=== PATIENT | female | born 1950 | race Caucasian/White ===

== ENCOUNTER 2024-08-12 19:54 | Inpatient (IN) | payer MEDICARE, SELFPAY ==
[2024-08-12] VITALS (17 sets, daily range): BP systolic 127–139; BP diastolic 60–73; PULSE 71–95; RESP 16–18; TEMP 36.5–36.6; O2SAT 82–99; BMI 27.4
--- NOTE | 2024-08-12 20:02 | DI.RAD.S_ITS ---
PROCEDURE: XR HIP W PEL IF DONE LT 2V INDICATIONS: Fall TECHNIQUE: AP pelvis with lateral view(s) of the left hip(s). COMPARISON: None. FINDINGS: Bones: There is an acute fracture involving subcapital region of left femoral neck with superior migration of left proximal femur in relation to femoral head. Moderate bilateral hip joint osteoarthritic changes are seen. No evidence of avascular necrosis of femoral head. Pelvic ring appears intact. No suspicious bony lesions. Soft tissues: The visualized bowel gas pattern is normal. No suspicious soft tissue calcifications. IMPRESSION: Acute displaced left femoral neck fracture as above. Dictated by: Regino Page M.D. on 08/12/2024 at 20:52 Approved by: Regino Page M.D. on 08/12/2024 at 20:53
--- NOTE | 2024-08-12 20:04 | DI.RAD.S_ITS ---
PROCEDURE: XR CHEST 1V INDICATIONS: PREOP TECHNIQUE: One view of the chest was acquired. COMPARISON: None. FINDINGS: Surgical changes and devices: None. Lungs and pleura: Mildly increased bronchovascular markings in bilateral hilar region are seen. No definite focal infiltrate. No pleural effusions or pneumothorax. Mediastinum: Mediastinal contours appear normal. Heart size is enlarged. Bones and chest wall: No suspicious bony lesions. Overlying soft tissues appear unremarkable. IMPRESSION: Increased bronchovascular markings in bilateral hilar region which may represent pulmonary vascular congestion. No definite focal infiltrate. No pleural effusion or pneumothorax. Dictated by: Regino Page M.D. on 08/12/2024 at 20:44 Approved by: Regino Page M.D. on 08/12/2024 at 20:44
--- NOTE | 2024-08-12 20:06 | ED_ITS ---
HPI - Fall General Chief Complaint: Fall Stated Complaint: GLF Time Seen by Provider: 08/12/24 20:01 Source: EMS Mode of arrival: EMS History of Present Illness HPI Narrative: 74yoF with PMH Parkinson's demenia, HTN presents by EMS from her assisted living facility for L hip pain after GLF from walker. History obtained from EMS as patient does have advanced dementia and is oriented to self only at baseline. Patient complaining of 35/10 left hip pain. Related Data Home Medications Medication Instructions Recorded Confirmed acetaminophen 325 mg tablet 650 mg PO Q4H PRN Pain, Mild 08/12/24 08/12/24 bisacodyl 10 mg rectal suppository 10 mg [place] DAILY PRN Constipation 08/12/24 08/12/24 (Dulcolax (bisacodyl)) carbidopa 25 mg-levodopa 100 mg 2.5 tab PO 3XD 08/12/24 08/12/24 tablet carbidopa ER 50 mg-levodopa 200 mg 1 tab PO ONCE PM 08/12/24 08/12/24 tablet,extended release duloxetine 60 mg capsule,delayed 60 mg PO BID 08/12/24 08/12/24 release esomeprazole magnesium 40 mg 40 mg PO DAILY 08/12/24 08/12/24 capsule,delayed release fenofibrate 54 mg tablet 54 mg PO DAILY 08/12/24 08/12/24 levothyroxine 125 mcg tablet 125 mcg PO DAILY 08/12/24 08/12/24 mineral oil 118 ml [place] DAILY PRN Constipation 08/12/24 08/12/24 mirabegron 50 mg tablet,extended 50 mg PO DAILY 08/12/24 08/12/24 release 24 hr (Myrbetriq) naloxone 0.4 mg/mL injection 0.4 mg SUBCUT Q2M PRN Suspected 08/12/24 08/12/24 solution Opioid overdose oxycodone 5 mg tablet 5 mg PO BID PRN chronic pain 08/12/24 08/12/24 polyethylene glycol 3350 17 17 g PO DAILY PRN Constipation 08/12/24 08/12/24 gram/dose oral powder (Miralax) rivastigmine 13.3 mg/24 hour 1 patch topical DAILY 08/12/24 08/12/24 transdermal patch sennosides 8.6 mg tablet (senna) 17.2 mg PO BEDTIME PRN Constipation 08/12/24 08/12/24 simvastatin 40 mg tablet 40 mg PO DAILY 08/12/24 08/12/24 trazodone 100 mg tablet 100 mg PO ONCE PM PRN Insomnia 08/12/24 08/12/24 triamcinolone acetonide 0.1 % 1 applic topical BID PRN Rash 08/12/24 08/12/24 topical cream Allergies Allergy/AdvReac Type Severity Reaction Status Date / Time amoxicillin [From Augmentin] Allergy Unknown Verified 08/12/24 21:49 clavulanic acid Allergy Unknown Verified 08/12/24 21:49 [From Augmentin] Patient History Social History Smoking Status: Never smoker Smoking Status: Never smoker Substance Use Type: does not use Exam Initial Vital Signs Initial Vital Signs: Vital Signs Pulse Rate 72 08/12/24 19:57 Pulse Oximetry 96 08/12/24 19:57 Const: Awake, alert, frail, debilitated, in pain Cardiac: regular rate, regular rhythm RESP: unlabored, clear bilaterally, no wheezing MSK: LLE shortened, exquisitely tender, unable to move due to pain, palpable DP pulses Skin: Warm, Dry, intact, no rashes Neuro: AO x1, CN II-XII grossly intact Procedures Nerve Block Nerve Block 1: Time out performed: Yes Local Anesthetic: bupivacaine 0.5% and with epi Amount of anesthesia used (mL): 20 Side: left Nerve Blocks: femoral Procedure Successful: Yes Patient Tolerated Procedure: Well and No complications Complications: none Additional Comments: Partial analgesia Course Orders Ordered: ED Orders 08/12/24 20:02 XR hip w pel if done LT 2V Stat 08/12/24 20:04 CT cervical spine wo con Stat CT head/brain wo con Stat Chest [XR chest 1V] Stat XR femur LT min 2V Stat 08/12/24 20:05 CBC Auto Diff [Complete Blood Count AUTO DIFF] Stat CMP [Comprehensive Metabolic Panel] Stat PT [Prothrombin Time INR] Stat EKG-12 Lead Stat 08/12/24 21:30 Type and Screen Stat 08/12/24 21:35 Consult to Orthopedic Surgery Stat Bisacodyl (Bisacodyl 10 Mg Supp) 10 mg [place] DAILY PRN PRN Reason: Constipation Lactated Ringer's (Lactated Ringers) 1,000 mls @ 100 mls/hr IV CONT JOSE MANUEL Acetaminophen (Ofirmev) 1,000 mg in 100 mls @ 400 mls/hr IV Q6H PRN PRN Reason: Fever/Mild Pain (1-3) Ketorolac Tromethamine (Ketorolac 30 Mg/Ml Vial) 15 mg IV Q6H PRN PRN Reason: moderate pain, 4-7 Stop: 08/17/24 21:55 Morphine Sulfate (Morphine 4 Mg/Ml Inj) 3 mg IV Q2HR PRN PRN Reason: severe pain Naloxone HCl (Naloxone 0.4 Mg/Ml Vial) 0.2 mg IV Q2MIN PRN PRN Reason: Opiate Reversal Sennosides (Sennosides 8.6 Mg Tablet) 17.2 mg PO BEDTIME PRN PRN Reason: Constipation Discontinued Medications Bupivacaine HCl (Bupivacaine 0.5% (Pf) 30 Ml Vial) 30 ml INJ INTRA-OP ONE Stop: 08/12/24 20:15 Last Admin: 08/12/24 22:28 Dose: Not Given Documented By: AB Bupivacaine HCl/Epinephrine Bitart (Bupivacaine 0.25% W/ Epi 30 Ml Vial) 30 ml INJ INTRA-OP ONE Stop: 08/12/24 20:06 Last Admin: 08/12/24 20:19 Dose: Not Given Documented By: AB Bupivacaine HCl/Epinephrine Bitart (Bupivacaine 0.5% W/ Epi (Pf) 30 Ml Vial) 30 ml INJ INTRA-OP ONE Stop: 08/12/24 20:38 Last Admin: 08/12/24 20:50 Dose: 30 ml Documented By: AB Hydromorphone HCl (Hydromorphone 1 Mg Inj) 1 mg IV NOW ONE Stop: 08/12/24 21:26 Last Admin: 08/12/24 21:28 Dose: 1 mg Documented By: AB Ketorolac Tromethamine (Ketorolac 30 Mg/Ml Vial) 15 mg IV Q6H PRN PRN Reason: moderate pain Stop: 08/17/24 21:55 Morphine Sulfate (Morphine 4 Mg/Ml Inj) 4 mg IV NOW ONE Stop: 08/12/24 20:05 Last Admin: 08/12/24 20:10 Dose: 4 mg Documented By: AB Morphine Sulfate (Morphine 4 Mg/Ml Inj) 3 mg IV Q2HR JOSE MANUEL Last Admin: 08/12/24 23:01 Dose: 3 mg Documented By: Pantoprazole Sodium (Pantoprazole 40 Mg Vial) 20 mg IV NOW ONE Stop: 08/12/24 23:43 Vital Signs Vital signs: Vital Signs - 8 hr 08/12/24 19:57 08/12/24 19:58 08/12/24 20:00 Temperature 97.9 F Pulse Rate 72 71 Respiratory Rate 16 Blood Pressure 130/60 137/70 Pulse Oximetry 96 95 Oxygen Delivery Method Room Air 08/12/24 20:00 08/12/24 21:05 08/12/24 21:06 Temperature Pulse Rate 73 82 Respiratory Rate Blood Pressure 139/63 Pulse Oximetry 95 95 Oxygen Delivery Method 08/12/24 21:06 08/12/24 21:29 08/12/24 21:30 Temperature Pulse Rate 82 84 Respiratory Rate Blood Pressure 136/66 Pulse Oximetry 93 91 Oxygen Delivery Method 08/12/24 21:30 08/12/24 21:35 Temperature Pulse Rate 86 89 Respiratory Rate Blood Pressure Pulse Oximetry 91 98 Oxygen Delivery Method MDM - Fall Differential Diagnosis Differential diagnosis: Likely compression fracture, concussion with loss of consciousness and concussion without loss of consciousness Lab Data 08/12/24 20:05 08/12/24 20:05 Labs: Lab Results 08/12/24 08/12/24 Range/Units 20:05 21:30 WBC 4.8 (4.5-11.0) X10^3/uL RBC 4.00 (4.0-5.2) X10^6/uL Hgb 12.2 (12.0-16.0) g/dL Hct 37.1 (36-46) % MCV 93.0 (80-100) fL MCH 30.6 (26-34) PG MCHC 32.9 (30-36) % RDW 14.5 (11.6-14.8) % Plt Count 245 (150-400) X10^3/uL Neut % (Auto) 55.9 (50-75) % Lymph % (Auto) 33.0 (25-40) % [place] % (Auto) 8.4 (3-14) % Eos % (Auto) 1.5 L (2-4) % Baso % (Auto) 1.2 (0-2) % Neut # (Auto) 2700 (1756-6850) /uL Lymph # (Auto) 1600 (6509-1426) /uL [place] # (Auto) 400 (0-900) /uL Eos # (Auto) 100 (0-450) /uL Baso # (Auto) 100 (0-100) /uL PT 12.3 (9.4-12.5) SECONDS INR 1.1 (0.9-1.3) Sodium 136 L (137-145) mmol/L Potassium 3.4 (3.4-5.1) mmol/L Chloride 108 H (98-107) mmol/L Carbon Dioxide 26 (22-32) mmol/L BUN 13 (7-17) mg/dL Creatinine 0.58 (0.52-1.04) mg/dL Estimated GFR > 60 (>60) mL/min BUN/Creatinine Ratio 22.4 H (6-22) Glucose 91 (80-110) mg/dL Calcium 8.2 L (8.4-10.2) mg/dL Total Bilirubin 0.5 (0.2-1.3) mg/dL AST 19 (14-36) IU/L ALT 7 (<35) IU/L Alkaline Phosphatase 66 (38-126) U/L Total Protein 6.5 (6.3-8.2) g/dL Albumin 3.5 (3.5-5.0) g/dL Globulin 3.0 (1.7-4.1) g/dL Albumin/Globulin Ratio 1.2 (1.0-2.8) Blood Type A Positive Antibody Screen Negative Imaging Data Extremity x-ray #1: Radiologist's Impression: PROCEDURE: XR HIP W PEL IF DONE LT 2V INDICATIONS: Fall TECHNIQUE: AP pelvis with lateral view(s) of the left hip(s). COMPARISON: None. FINDINGS: Bones: There is an acute fracture involving subcapital region of left femoral neck with superior migration of left proximal femur in relation to femoral head. Moderate bilateral hip joint osteoarthritic changes are seen. No evidence of avascular necrosis of femoral head. Pelvic ring appears intact. No suspicious bony lesions. Soft tissues: The visualized bowel gas pattern is normal. No suspicious soft tissue calcifications. IMPRESSION: Acute displaced left femoral neck fracture as above. Dictated by: Regino Page M.D. on 08/12/2024 at 20:52 Approved by: Regino Page M.D. on 08/12/2024 at 20:53 Extremity x-ray #2: Radiologist's Impression: PROCEDURE: XR FEMUR LT MIN 2V INDICATIONS: GLF, LLE PAIN TECHNIQUE: 2 views of the femur were acquired. COMPARISON: None. FINDINGS: Bones: Acute displaced fracture involving subcapital region of left femoral neck is seen. No mid to distal left femoral shaft fracture. Post ORIF changes are noted in patella. No gross hardware loosening or failure. Soft tissues: No suspicious soft tissue calcifications or masses. IMPRESSION: Acute displaced left femoral neck fracture. No mid to distal femoral shaft fracture. Dictated by: Regino Page M.D. on 08/12/2024 at 20:54 Approved by: Regino Page M.D. on 08/12/2024 at 20:54 CT scan - head: Radiologist's Impression: PROCEDURE: CT HEAD/BRAIN WO CON INDICATIONS: GLF, HEAD INJ TECHNIQUE: Noncontrast 4.5 mm thick angled axial sections acquired from the foramen magnum to the vertex, with coronal and sagittal reformats. For radiation dose reduction, the following was used: automated exposure control, adjustment of mA and/or kV according to patient size. COMPARISON: None. FINDINGS: Image quality: Diagnostic. CSF spaces: Basal cisterns are patent. No extra-axial fluid collections. The ventricles are symmetric in size and shape. Brain: No intracranial bleeds or masses. There is cerebral volume loss for age, with resultant ventricular and sulcal prominence. There are periventricular and deep white matter chronic small vessel ischemic changes. There is intracranial internal carotid artery atherosclerosis. Skull and face: Calvarium and visualized facial bones appear intact, without suspicious lesions. Sinuses: Visualized sinuses and mastoids are clear. IMPRESSION: 1. No acute intracranial pathology. 2. Age related volume loss and extensive white matter small vessel chronic ischemic changes. 3. No acute skull fracture. Dictated by: Regino Page M.D. on 08/12/2024 at 21:05 Approved by: Regino Page M.D. on 08/12/2024 at 21:06 CT - cervical spine: Radiologist's Impression: PROCEDURE: CT CERVICAL SPINE WO CON INDICATIONS: GLF, HEAD INJURY TECHNIQUE: Noncontrast 3 mm thick sections acquired from the skull base to the T4 level. Sagittal and coronal reformats were then constructed. For radiation dose reduction, the following was used: automated exposure control, adjustment of mA and/or kV according to patient size. COMPARISON: None. FINDINGS: Image quality: Excellent. Bones: No fractures or dislocations. Degenerative endplate changes are noted throughout cervical spine more notably at C5-6 and C6-7 levels causing mild central canal stenosis. No significant neural foraminal narrowing. Chronic appearing deformity involving left posterior 6 and 7th ribs are seen. Soft tissues: Prevertebral soft tissues are normal in thickness. No paravertebral hematomas. No apical pneumothoraces. IMPRESSION: 1. No displaced fracture or traumatic subluxation. 2. Degenerative disc disease throughout cervical spine as above. Dictated by: Regino Page M.D. on 08/12/2024 at 21:06 Approved by: Regino Page M.D. on 08/12/2024 at 21:08 [facility] Narrative Medical decision making narrative: Ground level fall at intermediate. Patient complaining of extreme tenderness in her left hip. Suspect underlying fracture. X-rays, laboratory work ordered. X-ray imaging confirms left-sided hip fracture. Spoke with patient's son Sravan and daughter in law Bernardo ([phone]) who i active patient's medical power of sql programmer. She was listed as DNR/comfort care only, however they state that for palliative reasons they would like to proceed with surgery if this is an option to them. Dr. Angeles of Orthopedic surgery consulted, who requested patient be made NPO at midnight. Patient requiring high doses of narcotic pain medication for analgesia. A femoral nerve block was attempted with 0.5% bupivacaine with epinephrine per procedure note. Patient did receive some improvement in her pain after the procedure, however still had significant tenderness with manipulation of her left leg. Patient to be admitted for further treatment Discharge Plan Departure Patient Disposition: Admitted As Inpatient Clinical Impression: Femoral neck fracture, Ground-level fall, Dementia Admit Date/Time: 08/12/24 21:35 Admit Provider: Wilfred Murray
--- NOTE | 2024-08-12 20:06 | PC.NURSE ---
Pt states the medication given in the ambulance did not even touch it. Pt able to extend and flex foot, but lifting causes pain in left hip. Pulse in left foot regular.
[2024-08-12] MEDS: MORPHINE 4 MG/ML INJ IV (20:10)
[2024-08-12 20:13] LABS: Add Manual Diff / Slide Review NO; Basophils Absolute Auto 100 /uL (0-100); Basophils Percent Auto 1.2 % (0-2); Eosinophils Absolute Auto 100 /uL (0-450); Eosinophils Percent Auto 1.5 % (2-4); Hematocrit 37.1 % (36-46); Hemoglobin 12.2 g/dL (12.0-16.0); Lymphocytes Absolute Auto 1600 /uL (1100-4500); Mean Corpuscular HGB Conc 32.9 % (30-36); Mean Corpuscular Hemoglobin 30.6 PG (26-34); Monocytes Absolute Auto 400 /uL (0-900); Monocytes Percent Auto 8.4 % (3-14); Neutrophils Absolute Auto 2700 /uL (1500-7000); Neutrophils Percent Auto 55.9 % (50-75); Platelet Count 245 X10^3/uL (150-400); Red Cell Distribution Width 14.5 % (11.6-14.8); White Blood Cell Count 4.8 X10^3/uL (4.5-11.0)
[2024-08-12 20:20] LABS: INR 1.1 (0.9-1.3); Prothrombin Time 12.3 SECONDS (9.4-12.5)
[2024-08-12 20:24] LABS: Alanine Aminotransferase 7 IU/L (<35); Albumin 3.5 g/dL (3.5-5.0); Albumin Globulin Ratio 1.2 (1.0-2.8); Alkaline Phosphatase 66 U/L (38-126); Aspartate Aminotransferase 19 IU/L (14-36); BUN Creatinine Ratio 22.4 (6-22); Bilirubin Total 0.5 mg/dL (0.2-1.3); Blood Urea Nitrogen 13 mg/dL (7-17); Calcium 8.2 mg/dL (8.4-10.2); Carbon Dioxide 26 mmol/L (22-32); Chloride 108 mmol/L (98-107); Estimated Glomerular Filt Rate > 60 mL/min (>60); Glucose 91 mg/dL (80-110); HEMOLYSIS 22 (0-50); Potassium 3.4 mmol/L (3.4-5.1); Sodium 136 mmol/L (137-145); Total Protein 6.5 g/dL (6.3-8.2)
[2024-08-12] MEDS: BUPIVACAINE 0.5% W/ EPI (PF) 30 ML VIAL INJ (20:50)
[2024-08-12] MEDS: HYDROMORPHONE 1 MG INJ IV (21:28)
[2024-08-12] MEDS: MORPHINE 4 MG/ML INJ 3 MG IV (23:01)
--- NOTE | 2024-08-12 23:43 | P.HP_ITS ---
History of Present Illness History of Present Illness Date Patient Seen: 08/12/24 Time Patient Seen: 23:25 Chief complaint: GLF Narrative: 74 y/o with PMH of Parkinson's disease, recurrent falls, OP, cognitive deficits, hypothyroidism, mixed HLD, GERD, who presented with left hip fracture after she sustained GLF. Unable to provide history or talk at the time of admission. Orthopedic surgery will see in AM for ORIF for Lt femoral neck fracture. [facility] Social History Smoking Status: Never smoker Meds Home Medications and Allergies Home Medications Medication Instructions Recorded Confirmed Type acetaminophen 325 mg tablet 650 mg PO Q4H PRN Pain, Mild 08/12/24 08/12/24 History bisacodyl 10 mg rectal suppository 10 mg [place] DAILY PRN Constipation 08/12/24 08/12/24 History (Dulcolax (bisacodyl)) carbidopa 25 mg-levodopa 100 mg 2.5 tab PO 3XD 08/12/24 08/12/24 History tablet carbidopa ER 50 mg-levodopa 200 mg 1 tab PO ONCE PM 08/12/24 08/12/24 History tablet,extended release duloxetine 60 mg capsule,delayed 60 mg PO BID 08/12/24 08/12/24 History release esomeprazole magnesium 40 mg 40 mg PO DAILY 08/12/24 08/12/24 History capsule,delayed release fenofibrate 54 mg tablet 54 mg PO DAILY 08/12/24 08/12/24 History levothyroxine 125 mcg tablet 125 mcg PO DAILY 08/12/24 08/12/24 History mineral oil 118 ml [place] DAILY PRN Constipation 08/12/24 08/12/24 History mirabegron 50 mg tablet,extended 50 mg PO DAILY 08/12/24 08/12/24 History release 24 hr (Myrbetriq) naloxone 0.4 mg/mL injection 0.4 mg SUBCUT Q2M PRN Suspected 08/12/24 08/12/24 History solution Opioid overdose oxycodone 5 mg tablet 5 mg PO BID PRN chronic pain 08/12/24 08/12/24 History polyethylene glycol 3350 17 17 g PO DAILY PRN Constipation 08/12/24 08/12/24 History gram/dose oral powder (Miralax) rivastigmine 13.3 mg/24 hour 1 patch topical DAILY 08/12/24 08/12/24 History transdermal patch sennosides 8.6 mg tablet (senna) 17.2 mg PO BEDTIME PRN Constipation 08/12/24 08/12/24 History simvastatin 40 mg tablet 40 mg PO DAILY 08/12/24 08/12/24 History trazodone 100 mg tablet 100 mg PO ONCE PM PRN Insomnia 08/12/24 08/12/24 History triamcinolone acetonide 0.1 % 1 applic topical BID PRN Rash 08/12/24 08/12/24 History topical cream Allergies Allergy/AdvReac Type Severity Reaction Status Date / Time amoxicillin [From Augmentin] Allergy Unknown Verified 08/12/24 21:49 clavulanic acid Allergy Unknown Verified 08/12/24 21:49 [From Augmentin] Review of Systems Review of Systems Narrative: unobtainable - she wouldn't talk during the admission, confused Exam Vital Signs (past 8 hours): - 08/12/24 19:57 08/12/24 19:58 08/12/24 20:00 Temperature 97.9 F Pulse Rate 72 71 Respiratory Rate 16 Blood Pressure 130/60 137/70 Pulse Oximetry 96 95 Oxygen Delivery Method Room Air Oxygen Flow Rate 08/12/24 20:00 08/12/24 21:05 08/12/24 21:06 Temperature Pulse Rate 73 82 Respiratory Rate Blood Pressure 139/63 Pulse Oximetry 95 95 Oxygen Delivery Method Oxygen Flow Rate 08/12/24 21:06 08/12/24 21:29 08/12/24 21:30 Temperature Pulse Rate 82 84 Respiratory Rate Blood Pressure 136/66 Pulse Oximetry 93 91 Oxygen Delivery Method Oxygen Flow Rate 08/12/24 21:30 08/12/24 21:35 08/12/24 21:40 Temperature Pulse Rate 86 89 89 Respiratory Rate Blood Pressure Pulse Oximetry 91 98 88 L Oxygen Delivery Method Oxygen Flow Rate 08/12/24 21:45 08/12/24 21:50 08/12/24 21:50 Temperature 97.7 F Pulse Rate 87 89 93 H Respiratory Rate 18 Blood Pressure 127/73 Pulse Oximetry 97 97 99 Oxygen Delivery Method Oxygen Flow Rate 1 08/12/24 21:55 08/12/24 22:00 08/12/24 22:00 Temperature Pulse Rate 90 91 H Respiratory Rate Blood Pressure 128/60 Pulse Oximetry 98 95 Oxygen Delivery Method Oxygen Flow Rate 08/12/24 22:05 08/12/24 22:10 08/12/24 22:15 Temperature Pulse Rate 91 H 92 H 94 H Respiratory Rate Blood Pressure Pulse Oximetry 97 82 L 97 Oxygen Delivery Method Room Air Nasal Cannula Oxygen Flow Rate 2 08/12/24 22:20 Temperature Pulse Rate 95 H Respiratory Rate Blood Pressure Pulse Oximetry 97 Oxygen Delivery Method Nasal Cannula Oxygen Flow Rate 2 Oxygen Delivery Method Nasal Cannula Oxygen Flow Rate 2 Const Other: in no distress, laying in bed, does not talk or participate with ROS / exam HENMT Other: atraumatic, on 1 L of oxygen via NC Neck Other: supple Resp Other: normal respiratory effort Cardio Other: RRR Skin Other: groin candidiasis Neuro Other: bradykinetic Extrem Other: Lt leg shortened, rotated, tender hip Psych Other: cognitive deficits Objective Labs 08/12/24 20:05 08/12/24 20:05 Labs: Laboratory Results - last 24 hr 08/12/24 08/12/24 20:05 21:30 WBC 4.8 RBC 4.00 Hgb 12.2 Hct 37.1 MCV 93.0 MCH 30.6 MCHC 32.9 RDW 14.5 Plt Count 245 Neut % (Auto) 55.9 Lymph % (Auto) 33.0 [place] % (Auto) 8.4 Eos % (Auto) 1.5 L Baso % (Auto) 1.2 Neut # (Auto) 2700 Lymph # (Auto) 1600 [place] # (Auto) 400 Eos # (Auto) 100 Baso # (Auto) 100 PT 12.3 INR 1.1 Sodium 136 L Potassium 3.4 Chloride 108 H Carbon Dioxide 26 BUN 13 Creatinine 0.58 Estimated GFR > 60 BUN/Creatinine Ratio 22.4 H Glucose 91 Calcium 8.2 L Total Bilirubin 0.5 AST 19 ALT 7 Alkaline Phosphatase 66 Total Protein 6.5 Albumin 3.5 Globulin 3.0 Albumin/Globulin Ratio 1.2 Blood Type A Positive Antibody Screen Negative Assessment & Plan Assessment and plan (1) Ground-level fall: Status: Acute (2) Femoral neck fracture: Status: Acute (3) Parkinson disease: Status: Acute (4) Dementia: Status: Acute (5) Depression: Status: Acute (6) Hypothyroidism: Status: Acute (7) GERD (gastroesophageal reflux disease): Status: Acute (8) Mixed hyperlipidemia: Status: Acute Assessment & Plan narrative: Lt Femoral Neck Fracture - NPO after midnight for OR - LR maintenance at midnight - pain management with Tylenol, Toradol, morphine - PT, OT, SS - Hx of recurrent falls 2nd to Parkinson's Parkinson's Disease / Dementia / Depression - resume Sinemet, rivastigmine and Cymbalta postop GERD - PPI x IV, resume PO postop Hypothyroidism - resume levothyroxine postop Constipation - laxatives Mixed HLD - Tricor / statin at home, resume postop DVT prophylaxis - SCDs Time-Based Coding :: [TOTAL MINUTES] spent with patient and on the chart (including review of chart, obtaining history, exam, reviewing outside data, placing orders, documenting exam and treatment plan, and counseling patient) on [DATE].
[2024-08-13] VITALS (14 sets, daily range): BP systolic 100–146; BP diastolic 53–86; PULSE 88–116; RESP 14–92; TEMP 36–37; O2SAT 4–95; BMI 27.4
[2024-08-13] MEDS: LACTATED RINGERS 1,000 ML 100 ML IV ×3 (00:52→21:03)
[2024-08-13] MEDS: PANTOPRAZOLE 40 MG VIAL 20 MG IV (00:52)
--- NOTE | 2024-08-13 02:31 | PC.NURSE ---
attempted to complete admissionassssemsnt but patient was not able to remember even basic information, completed what patient was able to answer.
[2024-08-13] MEDS: MORPHINE 4 MG/ML INJ 3 MG IV (06:23)
--- NOTE | 2024-08-13 08:21 | PM.CN ---
History of Present Illness Consult details Date Patient Seen: 08/13/24 Time Patient Seen: 08:21 Chief complaint: GLF Reason for consult: Left femoral neck fracture Requesting provider: Maryan Aviles Narrative: The patient is a 74-year-old female with a history of Parkinson's and dementia but lives at [facility] in [place]. Reported fall from a walker ground level fall onto left hip. Was brought to [facility] Emergency room by EMS found to have displaced left femoral neck fracture. Orthopedic surgery was called by the emergency room. RONIT is son Sravan who was in [facility]. Phone number is [phone] and [id number] [place] area code [phone] Patient unable to provide history. Apparently complained of left hip pain in the emergency room. Patient was seen in hospital bed today. She is sleeping. Awake slightly but is unable to provide any history to me. And does not respond to my questions. Meds Home Medications and Allergies Home Medications Medication Instructions Recorded Confirmed Type acetaminophen 325 mg tablet 650 mg PO Q4H PRN Pain, Mild 08/12/24 08/12/24 History bisacodyl 10 mg rectal suppository 10 mg TN DAILY PRN Constipation 08/12/24 08/12/24 History (Dulcolax (bisacodyl)) carbidopa 25 mg-levodopa 100 mg 2.5 tab PO 3XD 08/12/24 08/12/24 History tablet carbidopa ER 50 mg-levodopa 200 mg 1 tab PO ONCE PM 08/12/24 08/12/24 History tablet,extended release duloxetine 60 mg capsule,delayed 60 mg PO BID 08/12/24 08/12/24 History release esomeprazole magnesium 40 mg 40 mg PO DAILY 08/12/24 08/12/24 History capsule,delayed release fenofibrate 54 mg tablet 54 mg PO DAILY 08/12/24 08/12/24 History levothyroxine 125 mcg tablet 125 mcg PO DAILY 08/12/24 08/12/24 History mineral oil 118 ml TN DAILY PRN Constipation 08/12/24 08/12/24 History mirabegron 50 mg tablet,extended 50 mg PO DAILY 08/12/24 08/12/24 History release 24 hr (Myrbetriq) naloxone 0.4 mg/mL injection 0.4 mg SUBCUT Q2M PRN Suspected 08/12/24 08/12/24 History solution Opioid overdose oxycodone 5 mg tablet 5 mg PO BID PRN chronic pain 08/12/24 08/12/24 History polyethylene glycol 3350 17 17 g PO DAILY PRN Constipation 08/12/24 08/12/24 History gram/dose oral powder (Miralax) rivastigmine 13.3 mg/24 hour 1 patch topical DAILY 08/12/24 08/12/24 History transdermal patch sennosides 8.6 mg tablet (senna) 17.2 mg PO BEDTIME PRN Constipation 08/12/24 08/12/24 History simvastatin 40 mg tablet 40 mg PO DAILY 08/12/24 08/12/24 History trazodone 100 mg tablet 100 mg PO ONCE PM PRN Insomnia 08/12/24 08/12/24 History triamcinolone acetonide 0.1 % 1 applic topical BID PRN Rash 08/12/24 08/12/24 History topical cream Allergies Allergy/AdvReac Type Severity Reaction Status Date / Time amoxicillin [From Augmentin] Allergy Unknown Verified 08/12/24 21:49 clavulanic acid Allergy Unknown Verified 08/12/24 21:49 [From Augmentin] Review of Systems Review of Systems ROS: Yes unobtainable due to mental condition Exam Vital Signs (past 8 hours): Oxygen Delivery Method Nasal Cannula Oxygen Flow Rate 2 Narrative Exam Narrative: General exam lying in bed sleeping can be woken but does not respond to questions. Lying in bed pillow between her legs. Externally rotated left lower extremity. Toes are warm. Palpable dorsalis pedis pulse. The patient does not comply with the rest of motor sensory exam. Thigh and lower leg compartments are soft. Boogie catheter in place. Very limited exam due to patient condition but other than external rotation left lower extremity, no significant deformities noted Objective Imaging AP pelvis and left lateral hip: My impression: Displaced left femoral neck fracture Labs 08/12/24 20:05 08/12/24 20:05 Labs: Laboratory Results - last 24 hr 08/12/24 08/12/24 20:05 21:30 WBC 4.8 RBC 4.00 Hgb 12.2 Hct 37.1 MCV 93.0 MCH 30.6 MCHC 32.9 RDW 14.5 Plt Count 245 Neut % (Auto) 55.9 Lymph % (Auto) 33.0 [place] % (Auto) 8.4 Eos % (Auto) 1.5 L Baso % (Auto) 1.2 Neut # (Auto) 2700 Lymph # (Auto) 1600 [place] # (Auto) 400 Eos # (Auto) 100 Baso # (Auto) 100 PT 12.3 INR 1.1 Sodium 136 L Potassium 3.4 Chloride 108 H Carbon Dioxide 26 BUN 13 Creatinine 0.58 Estimated GFR > 60 BUN/Creatinine Ratio 22.4 H Glucose 91 Calcium 8.2 L Total Bilirubin 0.5 AST 19 ALT 7 Alkaline Phosphatase 66 Total Protein 6.5 Albumin 3.5 Globulin 3.0 Albumin/Globulin Ratio 1.2 Blood Type A Positive Antibody Screen [facility] Social History marital status: household members: none housing: senior living Tobacco & Substance Use Smoking Status: Never smoker Assessment & Plan Assessment and plan (1) Femoral neck fracture: Qualifiers: Encounter type: initial encounter Fracture type: closed Laterality: left Qualified Code(s): S72.002A - Fracture of unspecified part of neck of left femur, initial encounter for closed fracture Status: Acute (2) Dementia: Qualifiers: Dementia type: Parkinson's disease Dementia behavioral or psychological symptom: unspecified whether behavioral, psychotic, or mood disturbance or anxiety Dementia severity: unspecified severity Qualified Code(s): G20.A1 - Parkinson's disease without dyskinesia, without mention of fluctuations; F02.80 - Dementia in other diseases classified elsewhere, unspecified severity, without behavioral disturbance, psychotic disturbance, mood disturbance, and anxiety Status: Acute (3) Osteoporotic hip fracture: Qualifiers: Encounter type: initial encounter Laterality: left Qualified Code(s): M80.052A - Age-related osteoporosis with current pathological fracture, left femur, initial encounter for fracture Status: Acute Assessment & Plan narrative: Displaced left femoral neck fracture. I discussed the risks benefits and morbidity associated with femoral neck fracture with the patient's RONIT Hinson that is her son. And [id number] was also on the phone [place]. I have recommended surgery for a cemented hemiarthroplasty of the left hip for treatment of her left displaced femoral neck fracture this will allow more comfortable mobilization and reduce the morbidity of prolonged bed rest. We discussed overall risks of cognitive decline, blood loss, infection, risks of surgery. There agree to proceed. We discussed we will call back with anesthesia to go over formal surgical and anesthesia risks in a few hours and surgery would be planned for later today. She is NPO. She has not on any blood thinners. POA is son Sravan [phone] he is currently located in [place] Secondary POA [id number] [place]ova [phone] High-level medical decision-making decision for major orthopedic surgery inpatient admission hip fracture fixation. Time-Based Coding :: [TOTAL MINUTES] spent with patient and on the chart (including review of chart, obtaining history, exam, reviewing outside data, placing orders, documenting exam and treatment plan, and counseling patient) on [DATE].
--- NOTE | 2024-08-13 09:15 | PT-IP ANOTE ---
PT eval received and EMR reviewed. pt with L femoral neck fx and is scheduled for sx today. will d/c PT eval order and will wait for new order post surgery.
[2024-08-13] MEDS: ACETAMINOPHEN IV 1,000 MG/100 ML VIAL 400 MG IV (09:54)
[2024-08-13] MEDS: LACTATED RINGERS 1,000 ML 42 ML IV ×2 (10:36→14:01)
--- NOTE | 2024-08-13 10:48 | PM.OP.1 ---
Operative Date/Time/Diagnoses Date of procedure: 08/13/24 Time of procedure: 11:20 Pre-op diagnosis: Left femoral neck Fracture, osteoporotic hip fracture Post-op diagnosis: same Procedure & Clinicians Procedure: Hemiarthroplasty left hip CPT code 70114 Same procedure as scheduled: Yes Indications: 74Year old female with a displaced left femoral neck fracture. She has been indicated for operative treatment with a cemented hemiarthroplasty for the left hip fracture. She has Parkinson's dementia. The risks and benefits of the procedure have been discussed with the patient's POA her son Sravan and given the opportunity to ask questions. The risks of surgery include but are not limited to infection, fracture, persistence of pain, damage to nerves and blood vessels, blood loss, DVT, PE, cardiopulmonary complications and . The POA expressed a thorough understanding of the risks and benefits of surgery and has elected to proceed. Telephone Consent was signed and witnessed. Surgeon: Phuong Lundberg Power Lineworker: Jeannine Martinez Anesthesia Type: General and Local Operative Notes Findings: Displaced femoral neck fracture, left Closure Type: primary Specimen(s): none sent Prosthetic devices, grafts, tissues, transplants, or devices: [employer] Synergy stem cemented size 14 Neck 0 Head tandem unipolar 43 mm Medium cement restrictor 11 mm centralizer Estimated Blood Loss (mL): 200 Blood products transfused: none Tourniquet time (min): 0 Procedure in detail: During the operation, the services of a physician medical or surgical instrument maker were medically indicated and necessary to provide the exposure of the operative site for the surgical procedure and to maintain the limb in a proper position to carry out the operation safely and efficiently. Without a qualified cleaner assistant being present this would extended the operative procedure and made the procedure technically more difficult to perform. Hemiarthroplasty for femoral neck fracture CPT code 49201. Patient was seen in the preoperative area the site of surgery was marked and informed consent confirmed. This was the left hip The patient was brought back to the operating room by the anesthesia team. Patient was positioned supine on the operative table. General anesthetic was administered. Patient was then moved into the lateral position. The hip student activities director positioner pads were then placed. A well-padded axillary roll was placed and the arms were appropriately positioned. The affected lower extremity was prepped and draped from the ankle to the iliac crest with ChloraPrep in the standard fashion sterile drapes were placed. Formal time-out procedure was performed confirming the patient's side and site of surgery, presence of informed consent, administration of appropriate preoperative antibiotics. Hip was approached through a standard posterior approach. Dissection was carried down through the skin and subcutaneous tissues sharply through the skin and then with the Bovie through the subcutaneous tissues. The fascia santo was exposed and opened. Fascia was opened using the Bovie and the gluteus karina was spread with finger retraction. The Charnley retractor was placed. The inflamed bursa was resected. The piriformis was then identified. A Cobra retractor was placed under the gluteus medius to help expose the external rotators. The piriformis and short external rotators were tagged with a 2 Ethibond and divided of the trochanter. These were then retracted posteriorly to protect sciatic nerve. The femur was then flexed and internally rotated to present the femoral neck and the fracture. A corkscrew and a Vaughan were used to remove the femoral head from the acetabulum. This was measured to fit a 43 mm head on an equatorial fit through the head sizers. Next the femur was presented. A clean-up neck cut was made in a minimal fashion. The trial head size was trialed in the acetabulum. Attention was then turned to the femur. The canal was opened with a box cutting osteotome. This followed by the canal finer and a lateralizing Reamer. The tapered reamers were then used up to a size 12 initially and then eventually up to a 14. Then broaching was sequentially done up to a size 14 Trial components were placed. The patient was stable in the position of sleep, squatting and could be put through a range of motion with 70? of internal rotation without dislocation. This was felt to be appropriate. An intraop a AP pelvis x-ray was obtained to assess component position. Final components were then selected. The final stem was a size 14. Femoral canal was prepared . The distal medial restrictor was placed approximately 1 cm distal to the end of the planned implant. The bone was meticulously cleaned with pulse lavage. Canal was then packed with gauze. Three packages of cement were mixed and carefully pressurized into the femoral canal. The femoral component was then placed without difficulty. This was held in place until the cement hardened. The repeat trial reduction showed good range of motion and stability. The final head and neck were then carefully placed. The wound was irrigated. The capsule and muscular flap was repaired with the 2. Ethibond. Next the short external rotators were repaired to the greater trochanter through drill holes in the greater trochanter using the 2.5 drill and a [employer] suture Passer. These were tied with the leg in abduction. The wound was then irrigated again. The fascia santo was closed with 0 Vicryl and the subcutaneous layer was closed with 2-0 Vicryl and the skin with talia. An Aquacel dressing was placed. An abduction pillow was placed for protection. The drapes removed and the patient was taken to the recovery room in good condition. There no immediate complications from this procedure. All counts were correct. Postoperative AP pelvis x-ray was obtained in the PACU showed appropriate alignment of the cemented hip hemiarthroplasty with no evidence of fracture. Complications: none Post-operative Condition: stable Disposition: PACU Plan for aftercare: Weightbear as tolerated. Posterior hip precautions x6 weeks. Lovenox 40 mg subQ daily x4 weeks for DVT prophylaxis nursing home discharge Follow up in Orthopedic Clinic in 2-3 weeks for x-ray
--- NOTE | 2024-08-13 11:13 | SUR.HOLD ---
Patient resting quietly in bed, awaiting surgery; RR even and unlabored and does not appear to be in any distress. Verbal cosent for anesthesia and surgery obtained via telephone with son RONIT Perez.
[2024-08-13] MEDS: CEFAZOLIN 2 GM/100 ML PREMIX 100 ML IV ×2 (11:32→19:52)
--- NOTE | 2024-08-13 11:32 | CM.DANOTE ---
Patient is a 74 y/o F admitted s/p fall, undergoing palliative repair of hip fx today. Patient has a hx of Parkinsons and dementia, spoke with patient son/Bandar Hinson [phone]. He states the patient was residing in [place] and was recently relocated to the area and placed at [facility] private pay, doing a spend down to qualify for medicaid coverage. Patient fell at the facility and was transferred for care. Patient has Medicare and son would like her to return to [facility] for SNF if she qualifies to use her SNF days, otherwise she can return private pay to continue spend down. [facility] notified of intent to return. Will need updates sent after surgery and PT eval. No other needs identified or voiced at this time. MEGA Adams Discharge Planning/Care Management CM Discharge Assessment Start: 08/13/24 11:30 Freq: Status: Active Protocol: Document 08/13/24 11:30 KG (Rec: 08/13/24 11:32 KG [id number]) Discharge Planning Assessment Assigned Research Chemical Engineer Nette Garcia Advance Directives? Yes: Yes; POLST Advance Directives on File Yes History Provided By Family Member Expected Length of Stay 3 Prior Living Arrangements Skilled Nurse Facility Household Members none Type of transporation used prior to Relies on Others admit Facility Name Admitted From: [facility] Willing to Return to Facility? Yes Independent with ADL's No Is patient alert and oriented? No Caregiver for Another No Patient/Family Preference Senior Care Facility Discharge Plan Senior Care Facility Medicare Choice List Provided Yes Medicare choice list reviewed on family electronic tablet with SNF/HH Preference [facility] Has Agency SNF been contacted Yes
--- NOTE | 2024-08-13 12:05 | SUR.OPER ---
Lateral on a barcenas bag, head on pillow, gel axillary roll in place, bottom leg bent with gel pad under knee to foot, upper leg straight and supported with pillows. Upper arm supported by pillows and secured over bottom arm to padded arm board. Hip positioner posts placed per surgeon, tape over blanket lower legs.
[2024-08-13] MEDS: BUPIVACAINE 0.25% (PF) 30 ML, EPINEPHrine 0.15 MG INJ (12:21)
[2024-08-13] MEDS: BUPIVACAINE LIPOSOME 266 MG/20 ML VIAL INJ (12:24)
--- NOTE | 2024-08-13 12:27 | DI.RAD.S_ITS ---
PROCEDURE: XR PELVIS 1-2V INDICATIONS: Surgery TECHNIQUE: A single image was obtained during an operative procedure and submitted for interpretation following the completion of the procedure. COMPARISON: [facility], CR, XR FEMUR LT MIN 2V, 08/12/2024, 20:18. FINDINGS: On this single intraoperative image, progress is made towards placement of left hip arthroplasty. Intraoperative equipment can be seen. Please correlate with intraoperative findings. IMPRESSION: Normal intraoperative examination. Dictated by: Brice Key M.D. on 08/13/2024 at 12:02 Approved by: Brice Key M.D. on 08/13/2024 at 12:03
--- NOTE | 2024-08-13 13:00 | DI.RAD.S_ITS ---
PROCEDURE: XR HIP LT 1V INDICATIONS: Post Surgery Film TECHNIQUE: 2 view(s) of the hip acquired. COMPARISON: [facility], JA, XR HIP W PEL IF DONE LT 2V, 08/12/2024, 20:18. FINDINGS: Bones: Patient is status post left hip arthroplasty, with hardware components in expected positions. The hip joint appears congruent. The visualized bony structures appear intact. Soft tissues: Overlying postoperative changes are noted. No suspicious soft tissue densities. IMPRESSION: Expected post-operative appearance of a hip arthroplasty. Dictated by: Vishnu Haynes M.D. on 08/13/2024 at 15:13 Approved by: Vishnu Haynes M.D. on 08/13/2024 at 15:13
--- NOTE | 2024-08-13 14:10 | SUR.PHASEI ---
Patient in Phase 1 recovery; vss; patient remains on oxygen via nasal cannula at 3 liters, saturation of 90%; good rise and fall of chest wall noted, encouraged deep breathing. Patient does not appear to be in any distress. Sipping small amounts of water with assistance of PACU nurse. Boogie catheter draining padmaja-colored urine to bedside bag. Small dime-size drainage noted to aquacell dressing to left hip.
--- NOTE | 2024-08-13 14:31 | PM.PN.1 ---
Subjective Subjective Interval history: 74-year-old female with Parkinson's disease, advanced dementia, recurrent falls, hypothyroidism, hyperlipidemia, GERD who suffered a ground level fall while walking with her walker, and was found to have a left hip fracture. Family requested fracture repair for palliation. They confirmed her DNR/comfort care status. Currently, patient respondsuh huh to all questions I ask her Exam Vital Signs (past 8 hours): - 08/13/24 08:35 08/13/24 10:20 08/13/24 13:47 Temperature 96.8 F L 97.7 F 98.6 F Pulse Rate 88 90 108 H Respiratory Rate 14 20 18 Blood Pressure 146/86 H 129/80 132/86 Pulse Oximetry 95 93 93 Oxygen Delivery Method Nasal Cannula Nasal Cannula Oxygen Flow Rate 1 2 4 08/13/24 13:50 08/13/24 13:52 08/13/24 13:57 Temperature Pulse Rate 109 H 105 H 110 H Respiratory Rate 17 16 19 Blood Pressure 120/72 119/78 117/62 Pulse Oximetry 92 93 93 Oxygen Delivery Method Nasal Cannula Nasal Cannula Nasal Cannula Oxygen Flow Rate 4 3 3 08/13/24 13:57 08/13/24 14:02 08/13/24 14:07 Temperature Pulse Rate 110 H 111 H 110 H Respiratory Rate 18 19 24 Blood Pressure 117/62 119/76 116/64 Pulse Oximetry 92 91 91 Oxygen Delivery Method Nasal Cannula Nasal Cannula Nasal Cannula Oxygen Flow Rate 3 3 3 08/13/24 14:15 08/13/24 14:17 Temperature Pulse Rate 109 H 111 H Respiratory Rate 26 H 92 H Blood Pressure 114/64 113/63 Pulse Oximetry 92 4 L Oxygen Delivery Method Nasal Cannula Nasal Cannula Oxygen Flow Rate 4 Oxygen Delivery Method Nasal Cannula Oxygen Flow Rate 4 Narrative Exam Narrative: GEN: Elderly female, Alert and oriented x 1, NAD HEENT:NC, Face symmetric CHEST: Respiratory excursions symmetric, CTAB CV: Mildly tachycardic with regular rhythm, no M/R/G ABD: Soft, NT/ND, BT present in all 4 quadrants, no organomegaly or masses EXTR: warm, well perfused, no C/C/E SKIN: warm and dry, no rash NEURO: Alert and oriented x 1, nonfocal Objective Labs 08/12/24 20:05 08/12/24 20:05 Labs: Laboratory Results - last 24 hr 08/12/24 08/12/24 20:05 21:30 WBC 4.8 RBC 4.00 Hgb 12.2 Hct 37.1 MCV 93.0 MCH 30.6 MCHC 32.9 RDW 14.5 Plt Count 245 Neut % (Auto) 55.9 Lymph % (Auto) 33.0 [place] % (Auto) 8.4 Eos % (Auto) 1.5 L Baso % (Auto) 1.2 Neut # (Auto) 2700 Lymph # (Auto) 1600 [place] # (Auto) 400 Eos # (Auto) 100 Baso # (Auto) 100 PT 12.3 INR 1.1 Sodium 136 L Potassium 3.4 Chloride 108 H Carbon Dioxide 26 BUN 13 Creatinine 0.58 Estimated GFR > 60 BUN/Creatinine Ratio 22.4 H Glucose 91 Calcium 8.2 L Total Bilirubin 0.5 AST 19 ALT 7 Alkaline Phosphatase 66 Total Protein 6.5 Albumin 3.5 Globulin 3.0 Albumin/Globulin Ratio 1.2 Blood Type A Positive Antibody Screen Negative [facility] Social History marital status: household members: none housing: penitentiary Smoking Status: Never smoker Assessment & Plan Assessment & Plan narrative: 1. Left femoral neck fracture secondary to ground level fall Patient was admitted with an acute left femoral neck fracture. Plan is for palliative ORIF. She had been living in [place] and recently relocated to the area and is at [facility] at a [facility] private pay resident. Plan is for her to go to the operating room today for repair. She is presently NPO. 2. Parkinson's disease Will plan to resume her usual Sinemet dosing postop. 3. Advanced dementia On rivastigmine. This will be continued. 4. Depression Presently on Cymbalta. 5. Hypothyroidism Continue levothyroxine. 6. GERD Continue PPI. Code status DNR DNI Prophylaxis Chemical prophylaxis deferred due to pending surgery Disposition Plan return to [facility] Time-Based Coding :: [TOTAL MINUTES] spent with patient and on the chart (including review of chart, obtaining history, exam, reviewing outside data, placing orders, documenting exam and treatment plan, and counseling patient) on [DATE].
[2024-08-13] MEDS: CARBIDOPA-LEVODOPA 25/100 TABLET 2.5 EACH PO ×2 (15:15→21:01)
[2024-08-13] MEDS: ACETAMINOPHEN 325 MG TABLET 650 MG PO ×2 (15:15→20:07)
[2024-08-13] MEDS: KETOROLAC 30 MG/ML VIAL 15 MG IV (15:38)
[2024-08-13] MEDS: OXYCODONE IR 5 MG TABLET PO ×2 (15:52→23:39)
[2024-08-13] MEDS: OXYCODONE IR 10 MG TABLET PO (19:51)
[2024-08-13] MEDS: DOCUSATE 100 MG CAPSULE PO (21:00)
[2024-08-13] MEDS: CARBIDOPA-LEVODOPA ER 50/200 TABLET 1 EACH PO (21:01)
[2024-08-13] MEDS: DULOXETINE 30 MG CAPSULE 60 MG PO (21:01)
[2024-08-13] MEDS: SENNOSIDES 8.6 MG TABLET 17.2 MG PO (21:01)
[2024-08-13] MEDS: TRAZODONE 50 MG TABLET 100 MG PO (21:01)
[2024-08-14 02:00] VITALS: BP 108/56; PULSE 100; RESP 16; TEMP 36.9; O2SAT 97
[2024-08-14] MEDS: ACETAMINOPHEN 325 MG TABLET 650 MG PO ×4 (02:26→20:24)
[2024-08-14] MEDS: CEFAZOLIN 2 GM/100 ML PREMIX 100 ML IV (03:30)
[2024-08-14 05:54] VITALS: O2SAT 97
[2024-08-14 06:10] LABS: Add Manual Diff / Slide Review NO; Basophils Absolute Auto 0 /uL (0-100); Basophils Percent Auto 0.6 % (0-2); Eosinophils Absolute Auto 200 /uL (0-450); Eosinophils Percent Auto 2.2 % (2-4); Hematocrit 33.4 % (36-46); Hemoglobin 11.2 g/dL (12.0-16.0); Lymphocytes Absolute Auto 1400 /uL (1100-4500); Lymphocytes Percent Auto 18.8 % (25-40); Mean Corpuscular HGB Conc 33.6 % (30-36); Mean Corpuscular Volume 92.2 fL (80-100); Monocytes Absolute Auto 300 /uL (0-900); Monocytes Percent Auto 4.3 % (3-14); Neutrophils Absolute Auto 5300 /uL (1500-7000); Neutrophils Percent Auto 74.1 % (50-75); Platelet Count 178 X10^3/uL (150-400); Red Blood Cell Count 3.63 X10^6/uL (4.0-5.2); Red Cell Distribution Width 14.3 % (11.6-14.8); White Blood Cell Count 7.2 X10^3/uL (4.5-11.0)
[2024-08-14] MEDS: LEVOTHYROXINE 125 MCG TABLET PO (06:14)
[2024-08-14] MEDS: OXYCODONE IR 5 MG TABLET PO (06:15)
[2024-08-14] MEDS: PANTOPRAZOLE DR 40 MG TABLET PO (06:15)
[2024-08-14 06:21] LABS: BUN Creatinine Ratio 19.5 (6-22); Blood Urea Nitrogen 16 mg/dL (7-17); Calcium 8.2 mg/dL (8.4-10.2); Carbon Dioxide 29 mmol/L (22-32); Chloride 102 mmol/L (98-107); Estimated Glomerular Filt Rate > 60 mL/min (>60); Glucose 113 mg/dL (80-110); HEMOLYSIS < 15 (0-50); Potassium 4.1 mmol/L (3.4-5.1); Sodium 131 mmol/L (137-145)
[2024-08-14] MEDS: LACTATED RINGERS 1,000 ML 100 ML IV ×2 (07:36→17:54)
[2024-08-14 08:00] VITALS: BP 103/63; PULSE 104; RESP 16; TEMP 36.6; O2SAT 94
--- NOTE | 2024-08-14 08:15 | PM.PNPO.1 ---
Subjective Subjective Date Patient Seen: 08/14/24 Time Patient Seen: 08:16 Interval history: 74-year-old female with Parkinson's dementia admitted for fall and displaced femoral neck fracture now status post cemented hemiarthroplasty left date of surgery 08/13/2024. Communication limited but patient does not and respond to commands this morning. Lying in bed with abduction pillow. Demonstrates dorsiflexion plantar flexion EHL FHL function when asked. Exam Vital Signs (past 8 hours): - 08/14/24 02:00 08/14/24 05:54 Temperature 98.5 F Pulse Rate 100 H Respiratory Rate 16 Blood Pressure 108/56 L Pulse Oximetry 97 97 Oxygen Flow Rate 4 2 Oxygen Delivery Method Oximask Oxygen Flow Rate 2 Narrative Exam Narrative: Lying in bed. Follow some commands this morning. Does not verbalize. Abduction pillow. Demonstrates left side dorsiflexion plantar flexion EHL and FHL function. Palpable dorsalis pedis pulses. Hip dressing is clean dry and intact with Aquacel dressing. Ice pack lying along the hip. Objective Labs 08/14/24 05:50 08/14/24 05:50 Labs: Laboratory Results - last 24 hr 08/14/24 05:50 WBC 7.2 RBC 3.63 L Hgb 11.2 L Hct 33.4 L MCV 92.2 MCH 31.0 MCHC 33.6 RDW 14.3 Plt Count 178 Neut % (Auto) 74.1 Lymph % (Auto) 18.8 L [place] % (Auto) 4.3 Eos % (Auto) 2.2 Baso % (Auto) 0.6 Neut # (Auto) 5300 Lymph # (Auto) 1400 [place] # (Auto) 300 Eos # (Auto) 200 Baso # (Auto) 0 Sodium 131 L Potassium 4.1 Chloride 102 Carbon Dioxide 29 BUN 16 Creatinine 0.82 Estimated GFR > 60 BUN/Creatinine Ratio 19.5 Glucose 113 H Calcium 8.2 L PFSH Social History marital status: household members: none housing: correction Smoking Status: Never smoker Assessment & Plan Post-op Postoperative Procedures: Procedures Operation Date: 08/13/24 11:15 Actual Procedure Side Surgeon p Hip Hemiarthroplasty Left Phuong Lundberg MD Postoperative day: 1 Postoperative status: doing well Postoperative status narrative: Weightbear as tolerated. Posterior hip precautions x6 weeks. Lovenox 40 mg subQ daily x4 weeks for DVT prophylaxis longterm discharge Follow up in Orthopedic Clinic in 2-3 weeks for x-ray and staple removal Postoperative plan: routine post-op care Time Spent With Patient Time with patient: less than 15 minutes Quality VTE Deep Vein Thrombosis/Pulmonary Embolism Present on Admission: No
[2024-08-14] MEDS: CARBIDOPA-LEVODOPA 25/100 TABLET 2.5 EACH PO ×3 (08:33→20:22)
[2024-08-14] MEDS: ENOXAPARIN 40 MG/0.4 ML SYRINGE SUBCUT (08:34)
[2024-08-14] MEDS: DULOXETINE 30 MG CAPSULE 60 MG PO ×2 (08:34→20:25)
[2024-08-14] MEDS: polyethylene glycoL 3350 17 GM POWD.PACK PO (08:34)
[2024-08-14] MEDS: FENOFIBRATE, MICRONIZED 67 MG CAPSULE PO (08:34)
[2024-08-14] MEDS: DOCUSATE 100 MG CAPSULE PO ×2 (08:35→20:24)
[2024-08-14] MEDS: ATORVASTATIN 20 MG TABLET 40 MG PO (08:35)
[2024-08-14] MEDS: KETOROLAC 30 MG/ML VIAL 15 MG IV ×2 (08:35→15:42)
[2024-08-14] MEDS: TRIAMCINOLONE 0.1% CREAM 15 GM 1 APPLIC TOP (08:36)
--- NOTE | 2024-08-14 12:41 | CM.DPNOTE ---
MIKE Tee Spoke with Doron Kerns. Patient has [facility] MCR. Doron Gaitan starts their contract with [facility] 08/21/25. Saumya will admit patient back to [facility], but she is unsure if she can use patient's [facility] MCR at this time. Saumya requests a call from this CM team Wednesday 08/15 on the admission cell phone P [phone] to check in and discuss further. updated Saumya that MARGUERITE likely 08/16. MADAI
--- NOTE | 2024-08-14 12:46 | PT.IIE ---
Current Diagnoses Hypothyroidism, unspecified (08/12/24) Mixed hyperlipidemia (08/12/24) Dementia in other diseases classified elsewhere, unspecified severity, without behavioral disturbance, psychotic disturbance, mood disturbance, and anxiety (08/12/24) Unspecified dementia, unspecified severity, without behavioral disturbance, psychotic disturbance, mood disturbance, and anxiety (08/12/24) Depression, unspecified (08/12/24) Parkinson's disease without dyskinesia, without mention of fluctuations (08/12/24) Gastro-esophageal reflux disease without esophagitis (08/12/24) Age-related osteoporosis with current pathological fracture, left femur, initial encounter for fracture (08/12/24) Fracture of unspecified part of neck of left femur, initial encounter for closed fracture (08/12/24) Fracture of unspecified part of neck of unspecified femur, initial encounter for closed fracture (08/12/24) Fall on same level, unspecified, initial encounter (08/12/24) Surgery Performed Operation Date: 08/13/24 11:15 Actual Procedures p Hip Hemiarthroplasty(Left) - Phuong Lundberg MD Physical Therapy Inpatient Evaluation/Re-Eval M1 PT/OT-IP Prior Functional Status Start: 08/14/24 08:18 Freq: NEEDED Status: Active Protocol: Document 08/14/24 12:09 MB (Rec: 08/14/24 12:46 MB [id number]) Medical Review Prior Functional Status Medical History Reviewed Yes Communication Unsure baseline diet and communication Mobility and Gait Pt lives at [facility] in [place] and states she used 2WRW at baseline, she cannot provide any other history except that aides help her with ambulation. It is likely that she also receives assistance for all ADLs as well, if this is the case. Social History Household Members none Number of Stairs To Enter/Railing? Accessible entrance at [facility] . Pt states that her lives with her there. Per rounds, pt recently moved from [place]. 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 M2 PT-IP Current Condition Start: 08/14/24 08:18 Freq: NEEDED Status: Active Protocol: Document 08/14/24 12:09 MB (Rec: 08/14/24 12:46 MB [id number]) Physical Therapy Current Condition Current Condition Evaluation Date 08/14/24 Treatment Diagnosis Fall, left hip fx and s/p hemiarthroplasty and now post hip prec 6 weeks M3 PT-IP Subjective Start: 08/14/24 08:18 Freq: NEEDED Status: Active Protocol: Document 08/14/24 12:09 MB (Rec: 08/14/24 12:46 MB [id number]) Subjective Physical Therapy Visit Type Type Initial Evaluation Visit Start Time 12:09 Visit Stop Time 12:33 Number of [employer] Visits 0 Physical Therapy Visit Comments Patient Comments Pt tends to answer yeah to questions Therapy Pain Assessment Pain When Pain Assessed During Mobility Pain Present Pain Present Pain Reported Location left hip Intensity 6 Scale Used Edy (Faces) M4 PT-IP Mobility and Gait Start: 08/14/24 08:18 Freq: NEEDED Status: Active Protocol: Document 08/14/24 12:09 MB (Rec: 08/14/24 12:46 MB [id number]) PT-Bed Mobility Assessment Supine to Sit Supine to Sit Total Assistance,2 Person Assistance,Head of Bed Elevated,Bedrails Sit to Supine Sit to Supine Total Assistance,2 Person Assistance,Head of Bed Elevated,Bedrails Scooting Scooting to Edge of Bed Dependent PT-Transfer Assessment Comments Mobility Comments BP and HR in LUE: hook lying 81/40, 100; nsg adjusts cuff and checks again: 73/44, 100; and sitting EOB 91/48, 104. Pt is able to hold rail with both hands and attempt to lift hips to help scoot but otherwise, PT moves legs keeping them in line with one another for posterior hip precautions. Pt is unable to make effort to stand with +2 assist and RW. Moved back to bed with total assistance of two and place in cardiac chair position PT-Balance Assessment Sitting Balance and Reactions Static Sitting Balance Ability Fair Dynamic Sitting Balance Ability Poor M5 PT-IP Objective Assessments Start: 08/14/24 08:18 Freq: NEEDED Status: Active Protocol: Document 08/14/24 12:09 MB (Rec: 08/14/24 12:46 MB [id number]) Orientation Orientation/Cognition Level of Alertness Confusional State Orientation Name,Birthday Language Function Ability Word Finding Difficulties Safety Awareness Decreased Safety Awareness Memory Description Short Term Impaired,Chief Compliance Officer Impaired Gross Range of Motion Upper Extremity ROM Impairments Defer to OT next date Lower Extremity ROM Assessment Left Impaired Impairments No active movement today LLE and pt rests with right foot and toe pointed down (PFs) Strength Lower Extremity Strength Assessment Left Impaired Comments Strength Comments Pt does not participate with range or MMT today Coordination Assessment Gross Coordination Gross Coordination Impaired Sensation Assessment Comments Sensation Comments Unable to answer sensory questions M6 PT-IP Treatment Start: 08/14/24 08:18 Freq: NEEDED Status: Active Protocol: Document 08/14/24 12:09 MB (Rec: 08/14/24 12:46 MB [id number]) Physical Therapy Treatment Education Education Provided Precautions,Weight Bearing Status,Safety Other Treatments Other Treatment Performed PT educates pt in abd pillow, posterior hip precautions and WBAT and PT writes these on the board. Book also left in room. Pt is unable to understand hip precautions d/t cognitive and communication challenges. M7 PT-IP Assessment and Plan Start: 08/14/24 08:18 Freq: NEEDED Status: Active Protocol: Document 08/14/24 12:09 MB (Rec: 08/14/24 12:46 MB [id number]) PT Summary Assessment and Plan Potential Rehabilitation Potential Fair Status of Condition at Evaluation Evolving Summary Impairments Pain,ROM,Strength,Balance, Coordination,Sensation,Tone, Cognition,Bed Mobility, Transfers,Gait,Activity Tolerance Progress Towards Goals Slow Progress due to Activity Tolerance,Slow Progress - Other Assessment Summary Pt is a 74 y/o female with history of PD and falls and now left hip fracture and s/p hemiarthroplasty and posterior hip precautions. Pt makes minimal verbalizations and presents wit confusion today. She has trouble following commands and requires 2 person assistance to get EOB and cannot make effort to stand today. Returned to bed and cardiac chair position. Posterior hip precautions will be very challenging for pt and risk of dislocation is possible given PD, rigidity, history of falls and confusion . Goals Bed Mobility Goal Contact Guard Assistance Transfer Goal Contact Guard Assistance,Front Wheeled Walker Gait Goal Contact Guard Assistance,Front Wheel Walker Gait Distance 50 Days to Meet Goals 5 Frequency of Treatment Frequency Of Treatment Once a Day Treatment Plan Physical Therapy Treatment Plan Bed Mobility Training,Transfer Training,Gait Training, Therapeutic Exercise,Balance Retraining,Post Op Education, Discharge Planning,Hot or Cold Pack,Neuromuscular Re-ed, Coordination Retraining,Manual Therapy Precautions Posterior Hip Precautions No Hip Flexion > 90 degrees,No Hip Internal Rotation,No Hip Adduction Weight Bearing Status Weight Bearing Status Weight Bear as Tolerated Recommendations To Nursing Amount of Assist Needed Mechanical Lift Discharge Recommendations PT Discharge Recommendations SNF Rehab Transportation Needs at Discharge Wheelchair/Cabulance,Stretcher /Ambulance
--- NOTE | 2024-08-14 13:36 | PM.PN.1 ---
Subjective Subjective Interval history: 74-year-old female with Parkinson's disease, advanced dementia, recurrent falls, hypothyroidism, hyperlipidemia, GERD who suffered a ground level fall while walking with her walker, and was found to have a left hip fracture. Family requested fracture repair for palliation. They confirmed her DNR/comfort care status. Patient is sitting up eating breakfast. She states that her hip is quite painful. Overall, she reports she is doing well. She is a bit confused. She initially was asking for something that was a nonsensical word. She then was asking something about a collar. She then ultimately corrected herself and stated she wanted some ham. She denies any other concerns. When asked about her recent move from [place], she reports some of her family is here. She states she does not particularly like it in the [facility] and states that she has been bored since moving here. Exam Vital Signs (past 8 hours): - 08/14/24 05:54 08/14/24 08:00 08/14/24 08:00 Temperature 97.8 F Pulse Rate 104 H Respiratory Rate 16 Blood Pressure 103/63 Pulse Oximetry 97 94 Oxygen Delivery Method Nasal Cannula Oxygen Flow Rate 2 2 Oxygen Delivery Method Nasal Cannula Oxygen Flow Rate 2 Narrative Exam Narrative: GEN: Pleasant middle-aged female, Alert and oriented x 2, NAD HEENT:NC, Face symmetric CHEST: Respiratory excursions symmetric, CTAB CV: RRR, no M/R/G ABD: Soft, NT/ND, BT present in all 4 quadrants, no organomegaly or masses EXTR: warm, well perfused, no C/C/E SKIN: warm and dry, no rash NEURO: Alert and oriented x 2, nonfocal Objective Labs 08/14/24 05:50 08/14/24 05:50 Labs: Laboratory Results - last 24 hr 08/14/24 05:50 WBC 7.2 RBC 3.63 L Hgb 11.2 L Hct 33.4 L MCV 92.2 MCH 31.0 MCHC 33.6 RDW 14.3 Plt Count 178 Neut % (Auto) 74.1 Lymph % (Auto) 18.8 L [place] % (Auto) 4.3 Eos % (Auto) 2.2 Baso % (Auto) 0.6 Neut # (Auto) 5300 Lymph # (Auto) 1400 [place] # (Auto) 300 Eos # (Auto) 200 Baso # (Auto) 0 Sodium 131 L Potassium 4.1 Chloride 102 Carbon Dioxide 29 BUN 16 Creatinine 0.82 Estimated GFR > 60 BUN/Creatinine Ratio 19.5 Glucose 113 H Calcium 8.2 L [facility] Social History marital status: household members: none housing: [facility] Smoking Status: Never smoker Assessment & Plan Assessment & Plan narrative: 1. Left femoral neck fracture secondary to ground level fall Patient was admitted with an acute left femoral neck fracture. She is now postoperative day 1 from hemiarthroplasty. Ongoing management per Orthopedic surgery. 2. Parkinson's disease Continue her usual dose of Sinemet. 3. Acute blood loss anemia Hemoglobin is mildly decreased from 12.2-11.2, likely secondary to hip fracture and expected blood loss from surgery. We will continue to monitor. 4. Hyponatremia Sodium was 136 on admission. It has decreased to 131 today. Will monitor 5. Advanced dementia On rivastigmine. This will be continued. She is much more verbal today compared with yesterday. 6. Hypothyroidism Continue levothyroxine. 7. GERD Continue PPI. Code status DNR DNI Prophylaxis On Lovenox Disposition Plan return to [facility] Time-Based Coding :: [TOTAL MINUTES] spent with patient and on the chart (including review of chart, obtaining history, exam, reviewing outside data, placing orders, documenting exam and treatment plan, and counseling patient) on [DATE]. Quality VTE Deep Vein Thrombosis/Pulmonary Embolism Present on Admission: No
[2024-08-14] MEDS: NYSTATIN POWDER 15GM 1 APPLIC TOP (14:42)
[2024-08-14 16:00] VITALS: BP 100/56; PULSE 66; RESP 16; TEMP 36.4; O2SAT 94
[2024-08-14] MEDS: SODIUM CHLORIDE 0.9% 500 ML 1000 ML IV (16:01)
[2024-08-14 17:17] VITALS: BP 97/47; PULSE 99; RESP 18; O2SAT 92
--- NOTE | 2024-08-14 18:07 | PC.NURSE ---
Day shift: Notified MD Rinaldi of pt's hypotension. 500cc bolus given this afternoon. Continued LR at 100mL as well since urine is minimal and dark yellow. Boogie remains in place. This RN attempted to ambulate pt with PT Arabella, but patient unable to stand or bear any weight. Pt remains on 0.5L O2 NC - this RN attempted to wean her to RA x2 this shift - pt's O2 sats would dip to 87 percent on room air. Attempted to have patient use IS - patient had difficulty following directions. RT aware. Will continue to monitor.
[2024-08-14 19:00] VITALS: BP 90/56; PULSE 102; RESP 18; TEMP 36.6; O2SAT 90
[2024-08-14] MEDS: CARBIDOPA-LEVODOPA ER 50/200 TABLET 1 EACH PO (20:24)
[2024-08-14] MEDS: SENNOSIDES 8.6 MG TABLET 17.2 MG PO (20:24)
[2024-08-15] MEDS: KETOROLAC 30 MG/ML VIAL 15 MG IV (00:09)
[2024-08-15] MEDS: TRAZODONE 50 MG TABLET 100 MG PO (00:10)
[2024-08-15] MEDS: LACTATED RINGERS 1,000 ML 100 ML IV ×3 (03:29→22:29)
[2024-08-15] MEDS: OXYCODONE IR 5 MG TABLET PO ×2 (03:48→17:03)
[2024-08-15] MEDS: ACETAMINOPHEN 325 MG TABLET 650 MG PO ×4 (03:48→20:50)
[2024-08-15 05:20] LABS: Add Manual Diff / Slide Review NO; Basophils Absolute Auto 0 /uL (0-100); Basophils Percent Auto 0.7 % (0-2); Eosinophils Absolute Auto 200 /uL (0-450); Eosinophils Percent Auto 4.1 % (2-4); Hematocrit 29.1 % (36-46); Hemoglobin 9.9 g/dL (12.0-16.0); Lymphocytes Absolute Auto 1400 /uL (1100-4500); Lymphocytes Percent Auto 23.1 % (25-40); Mean Corpuscular HGB Conc 33.9 % (30-36); Mean Corpuscular Hemoglobin 31.2 PG (26-34); Mean Corpuscular Volume 92.1 fL (80-100); Monocytes Absolute Auto 300 /uL (0-900); Monocytes Percent Auto 5.6 % (3-14); Neutrophils Absolute Auto 4000 /uL (1500-7000); Neutrophils Percent Auto 66.5 % (50-75); Platelet Count 152 X10^3/uL (150-400); Red Blood Cell Count 3.16 X10^6/uL (4.0-5.2); Red Cell Distribution Width 14.3 % (11.6-14.8)
[2024-08-15 05:26] LABS: BUN Creatinine Ratio 21.5 (6-22); Blood Urea Nitrogen 14 mg/dL (7-17); Calcium 8.5 mg/dL (8.4-10.2); Carbon Dioxide 28 mmol/L (22-32); Chloride 104 mmol/L (98-107); Estimated Glomerular Filt Rate > 60 mL/min (>60); Glucose 121 mg/dL (80-110); HEMOLYSIS < 15 (0-50); Potassium 3.7 mmol/L (3.4-5.1); Sodium 132 mmol/L (137-145)
[2024-08-15] MEDS: PANTOPRAZOLE DR 40 MG TABLET PO (05:37)
[2024-08-15] MEDS: LEVOTHYROXINE 125 MCG TABLET PO (05:37)
[2024-08-15 07:45] VITALS: BP 111/65; PULSE 92; RESP 18; O2SAT 88
[2024-08-15 08:00] VITALS: O2SAT 94
--- NOTE | 2024-08-15 08:27 | PM.PN.1 ---
Subjective Subjective Interval history: Summary: 74-year-old female with Parkinson's disease, advanced dementia, recurrent falls, hypothyroidism, hyperlipidemia, GERD who suffered a ground level fall while walking with her walker, and was found to have a left hip fracture. Family requested fracture repair for palliation. They confirmed her DNR/comfort care status. S: She was doing well. She was stood up with occupational therapy today. Her pain is well-controlled and she denies any dyspnea or abdominal pain. Exam Vital Signs (past 8 hours): - 08/15/24 07:45 Pulse Rate 92 H Respiratory Rate 18 Blood Pressure 111/65 Pulse Oximetry 88 L Oxygen Flow Rate 0 Oxygen Delivery Method Nasal Cannula Oxygen Flow Rate 0 Narrative Exam Narrative: NAD, alert. Fluent speech. Lungs are clear, normal rate and effort. Heart is regular, no murmur gallop or rub. Abdomen is soft, non distended. Extremities are free of edema. Objective Labs 08/15/24 04:50 08/15/24 04:50 Labs: Laboratory Results - last 24 hr 08/15/24 04:50 WBC 6.0 RBC 3.16 L Hgb 9.9 L Hct 29.1 L MCV 92.1 MCH 31.2 MCHC 33.9 RDW 14.3 Plt Count 152 Neut % (Auto) 66.5 Lymph % (Auto) 23.1 L [place] % (Auto) 5.6 Eos % (Auto) 4.1 H Baso % (Auto) 0.7 Neut # (Auto) 4000 Lymph # (Auto) 1400 [place] # (Auto) 300 Eos # (Auto) 200 Baso # (Auto) 0 Sodium 132 L Potassium 3.7 Chloride 104 Carbon Dioxide 28 BUN 14 Creatinine 0.65 Estimated GFR > 60 BUN/Creatinine Ratio 21.5 Glucose 121 H Calcium 8.5 PFSH Social History marital status: household members: none housing: prison Smoking Status: Never smoker Assessment & Plan Assessment & Plan narrative: 1. Left femoral neck fracture secondary to ground level fall, present on admission and active. Patient was admitted with an acute left femoral neck fracture. She is now postoperative day 1 from hemiarthroplasty. Ongoing management per Orthopedic surgery. 2. Parkinson's disease, present on admission and active. Continue her usual dose of Sinemet. 3. Acute blood loss anemia, present on admission and active. Hemoglobin is mildly decreased from 12.2-11.2, likely secondary to hip fracture and expected blood loss from surgery. We will continue to monitor. 4. Hyponatremia , present on admission and active. Sodium was 136 on admission. It has decreased to 131 today. Will monitor 5. Advanced dementia, present on admission and active. On rivastigmine. This will be continued. She is much more verbal today compared with yesterday. 6. Hypothyroidism, present on admission and active. Continue levothyroxine. 7. GERD, present on admission and active. Continue PPI. PLAN: Returned to [facility] for senior living facility services when they can accept her. Code status: DNR DNI Prophylaxis: On Lovenox MARGUERITE: 08/16 Disposition Plan return to [facility] Time-Based Coding :: [TOTAL MINUTES] spent with patient and on the chart (including review of chart, obtaining history, exam, reviewing outside data, placing orders, documenting exam and treatment plan, and counseling patient) on [DATE]. Quality VTE Deep Vein Thrombosis/Pulmonary Embolism Present on Admission: No
[2024-08-15] MEDS: DOCUSATE 100 MG CAPSULE PO ×2 (08:39→20:46)
[2024-08-15] MEDS: FENOFIBRATE, MICRONIZED 67 MG CAPSULE PO (08:39)
[2024-08-15] MEDS: ATORVASTATIN 20 MG TABLET 40 MG PO (08:39)
[2024-08-15] MEDS: polyethylene glycoL 3350 17 GM POWD.PACK PO (08:39)
[2024-08-15] MEDS: ENOXAPARIN 40 MG/0.4 ML SYRINGE SUBCUT (08:39)
[2024-08-15] MEDS: CARBIDOPA-LEVODOPA 25/100 TABLET 2.5 EACH PO ×3 (08:40→20:46)
[2024-08-15] MEDS: DULOXETINE 30 MG CAPSULE 60 MG PO ×2 (08:40→20:46)
[2024-08-15] MEDS: NYSTATIN POWDER 15GM 1 APPLIC TOP (08:41)
--- NOTE | 2024-08-15 10:14 | CM.DPC ---
DCP SNF Planning: Per MD, pt had some hypotension yesterday and given a bolus and improving and likely ready for d/c to SNF by tomorrow 08/16/24. Per AD Counselors, pt's [facility] MCR termed on 07-21-24 per Laurence and active currently with [facility]. RAMAN called Saumya at [facility] and updated her on pt's straight Medicare and she confirms this makes pt's return for SNF rehab easier and Saumya states no PASRR needed since pt is a return to their facility. Updated that likely pt ready for d/c by tomorrow and Saumya confirms they can accept pt tomorrow Tu if medically stable for discharge. RAMAN secure emailed updated notes to review per her request. RAMAN left voicemail for pt's son/RONIT Hinson regarding above and tentative plan for d/c tomorrow. Plan: SW to follow for plan of d/c back to [facility] tomorrow Tu if medically stable. Nicole Waters MSW
--- NOTE | 2024-08-15 11:34 | OT.IP.EVAL ---
Current Diagnoses Hypothyroidism, unspecified (08/12/24) Mixed hyperlipidemia (08/12/24) Dementia in other diseases classified elsewhere, unspecified severity, without behavioral disturbance, psychotic disturbance, mood disturbance, and anxiety (08/12/24) Unspecified dementia, unspecified severity, without behavioral disturbance, psychotic disturbance, mood disturbance, and anxiety (08/12/24) Depression, unspecified (08/12/24) Parkinson's disease without dyskinesia, without mention of fluctuations (08/12/24) Gastro-esophageal reflux disease without esophagitis (08/12/24) Age-related osteoporosis with current pathological fracture, left femur, initial encounter for fracture (08/12/24) Fracture of unspecified part of neck of left femur, initial encounter for closed fracture (08/12/24) Fracture of unspecified part of neck of unspecified femur, initial encounter for closed fracture (08/12/24) Fall on same level, unspecified, initial encounter (08/12/24) Surgery Performed Operation Date: 08/13/24 11:15 Actual Procedures p Hip Hemiarthroplasty(Left) - Phuong Lundberg MD Occupational Therapy Inpatient Evaluation/Re-Eval M1 PT/OT-IP Prior Functional Status Start: 08/14/24 08:18 Freq: NEEDED Status: Active Protocol: Document 08/15/24 11:39 CGR (Rec: 08/15/24 11:52 CGR [id number]) Medical Review Prior Functional Status Medical History Reviewed Yes Communication Unsure baseline diet and communication Mobility and Gait Pt lives at [facility] in [place] and states she used 2WRW at baseline, she cannot provide any other history except that aides help her with ambulation. It is likely that she also receives assistance for all ADLs as well, if this is the case. Social History Household Members none Number of Stairs To Enter/Railing? Accessible entrance at [facility] . Pt states that her lives with her there. Per rounds, pt recently moved from [place]. 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 M2 OT-IP Current Condition Start: 08/15/24 11:39 Freq: Status: Active Protocol: Document 08/15/24 11:39 CGR (Rec: 08/15/24 11:52 CGR [id number]) Occupational Therapy Current Condition Current Condition Evaluation Date 08/15/24 Treatment Diagnosis Fall with L hip fx. Pt underwent L posterior ALEXUS Diagnosis Onset Date 08/12/24 Post Operative Precautions Posterior Hip Precautions No Hip Flexion > 90 degrees,No Hip Internal Rotation,No Hip Adduction M3 OT- IP Subjective and Pain Start: 08/15/24 11:39 Freq: Status: Active Protocol: Document 08/15/24 11:39 CGR (Rec: 08/15/24 11:52 CGR [id number]) OT- Subjective Occupational Therapy Visit Type Type Initial Evaluation Visit Start Time 11:04 Visit Stop Time 11:34 Notes Partial co-treat with P.T. OT Pain Assessment Pain When Pain Assessed At Rest Pain Present Pain Present Denied Pain M4 OT- IP ADL's Start: 08/15/24 11:39 Freq: Status: Active Protocol: Document 08/15/24 11:39 CGR (Rec: 08/15/24 11:52 CGR [id number]) OT [id number] Comments OT Self-Feeding Comments not meal time OT ADL-Grooming General Evaluation Grooming Ability Standby Assistance Areas Needing Assistance Face Washing Comments OT Grooming Comments sitting up in bed with set up OT ADL-Oral Care General Eval Oral Care Ability Minimal Assistance Areas of Assistance Brushing Teeth,Retrieving/Set- Up of Items Comments Oral Care Comments sitting up in bed. Pt needs vc to complete tasks otherwise pt perseverates on it and just continues to brush. OT ADL-Dressing General Eval Lower Body Dressing Ability Total Assistance Areas Needing Assistance Socks OT ADL-Toileting General Evaluation Toileting Ability Total Assistance Comments OT Toileting Comments linder OT ADL-Bathing Comments OT Bathing Comments not performed M5 OT- IP IADL's Start: 08/15/24 11:39 Freq: Status: Active Protocol: Document 08/15/24 11:39 CGR (Rec: 08/15/24 11:52 CGR [id number]) OT-Instrumental Activities of Daily Living Deficits IADL Deficits Identified Deficits Home Safety Awareness Awareness of Need for Assistance at Home Decreased Awareness Ability to Problem Solve Emergency Unable to Problem Solve Situations Medication Management Medication Management Caregiver Administers Money Management Money Management Caregiver Provides Assistance Meal Preparation Meal Preparation Caregiver Provides Assist Interlacer Interlacer Caregiver Provides Assist Driving Driving Comments Pt does not drive at baseline. M6 OT- IP Functional Cognition Start: 08/15/24 11:39 Freq: Status: Active Protocol: Document 08/15/24 11:39 CGR (Rec: 08/15/24 11:52 CGR [id number]) Cognitive Factors Limiting Selfcare Function Cognitive Ability Level of Alertness Alert,Confusional State Patient Orientation Name,Place Attention Span Ability Capable of Focused Attention, Capable of Sustained Attention Ability to Follow Commands Able to Follow One Step Commands with Increased Time, Able to Follow One Step Commands with Repetition Cognitive Comments Cognitive Assessment Comments Pt with advanced dementia per chart. Pt is unable to state that she is in [place], says she is in [place] or [place]. States month is February. OT- Vision and Hearing OT- Hearing Assessment OT- Hearing Assessment WFL OT- Vision Assessment Visual Acuity Glasses All The Time Visual Attentiveness WFL Occular Pursuits WFL Visual Convergence WFL M7 OT- IP Mobility and Balance Start: 08/15/24 11:39 Freq: Status: Active Protocol: Document 08/15/24 11:39 CGR (Rec: 08/15/24 11:52 CGR [id number]) OT- Bed Mobility Assessment Supine to Sit Supine to Sit Assist Contact Guard Assistance Scooting Scooting to Edge of Bed Moderate Assistance,1 Person Assistance OT-Transfer Assessment Sit to and From Stand Sit to and from Stand Maximum Assistance,1 Person Assistance Technique Transfer Destination Bed Devices Transfer Assistive Devices Gait Belt,Front Wheeled Walker Comments Mobility Comments Pt was unable to take steps but performed with excellent effort on getting to the EOB OT- Balance Assessment Sitting Balance and Reactions Static Sitting Balance Ability Good Dynamic Sitting Balance Ability Fair M8 OT- IP Objective Assessments Start: 08/15/24 11:39 Freq: Status: Active Protocol: Document 08/15/24 11:39 CGR (Rec: 08/15/24 11:52 CGR [id number]) OT Gross Range of Motion Upper Extremity Range of Motion Assessment Within Functional Limits OT Strength Upper Extremity Strength Assessment Within Functional Limits Comments Strength Comments grossly 4+/5 OT- Coordination Assessment Upper Extremity Finger to Nose Test Within Functional Limits Finger Tapping Test Within Functional Limits OT-Muscle Tone Assessment Muscle Tone WNL Yes OT Sensation Assessment Edema Edema Absent M9 OT- IP Assessment and Plan Start: 08/15/24 11:39 Freq: Status: Active Protocol: Document 08/15/24 11:39 CGR (Rec: 11/25/24 11:52 CGR [id number]) OT Summary Assessment and Plan Potential Rehabilitation Potential Good Analytic Complexity at Evaluation Moderate Summary OT Impairments Balance,Coordination, Functional Cognition, Functional Mobility,Grooming, Dressing,Toileting,Bathing, Toilet Transfers,Shower Transfers,Activity Tolerance Progress Towards Goals Slow Progress due to Cognition Assessment Summary Pt presents as a moderate complexity evaluation s/p admit for fall and L hip fx. Pt underwent L ALEXUS posterior and participated well in todays session. Pt with excellent effort to get to EOB and then sit to stand with max 1. Pt returned to bed at end of session, call button within reach and all needs at time met. Pt performed ADLS seated once returned to bed. Pt will benefit from SNF upon discharge. Goals Grooming Goal Independent Dressing Goal Minimal Assistance Toileting Goal Minimal Assistance Bathing Goal Minimal Assistance Toilet Transfer Goal Minimal Assistance Shower Transfer Goal Minimal Assistance Days to Meet Goals 30 Frequency of Treatment Other frequency 5x per week Treatment Plan OT Treatment Plan ADL Training,Functional Cognition Training,Functional Mobility,Patient/Family Education,Discharge Planning Other Treatment Recommendations and Next BSC or chair transfer if able Treatment Focus for ADLS. Discharge Recommendations OT Discharge Recommendations SNF Rehab Transportation Needs at Discharge Wheelchair/Cabulance
--- NOTE | 2024-08-15 11:51 | PT.IPTN ---
Current Diagnoses Hypothyroidism, unspecified (08/12/24) Mixed hyperlipidemia (08/12/24) Dementia in other diseases classified elsewhere, unspecified severity, without behavioral disturbance, psychotic disturbance, mood disturbance, and anxiety (08/12/24) Unspecified dementia, unspecified severity, without behavioral disturbance, psychotic disturbance, mood disturbance, and anxiety (08/12/24) Depression, unspecified (08/12/24) Parkinson's disease without dyskinesia, without mention of fluctuations (08/12/24) Gastro-esophageal reflux disease without esophagitis (08/12/24) Age-related osteoporosis with current pathological fracture, left femur, initial encounter for fracture (08/12/24) Fracture of unspecified part of neck of left femur, initial encounter for closed fracture (08/12/24) Fracture of unspecified part of neck of unspecified femur, initial encounter for closed fracture (08/12/24) Fall on same level, unspecified, initial encounter (08/12/24) Surgery Performed Operation Date: 08/13/24 11:15 Actual Procedures p Hip Hemiarthroplasty(Left) - Phuong Lundberg MD Physical Therapy Treatment Note M2 PT-IP Current Condition Start: 08/14/24 08:18 Freq: NEEDED Status: Active Protocol: Document 08/14/24 12:09 MB (Rec: 08/14/24 12:46 MB [id number]) Physical Therapy Current Condition Current Condition Evaluation Date 08/14/24 Treatment Diagnosis Fall, left hip fx and s/p hemiarthroplasty and now post hip prec 6 weeks M3 PT-IP Subjective Start: 08/14/24 08:18 Freq: NEEDED Status: Active Protocol: Document 08/15/24 11:07 MB (Rec: 08/15/24 11:51 MB [id number]) Subjective Physical Therapy Visit Type Type Treatment Note Visit Start Time 11:07 Visit Stop Time 11:21 Number of SOLAR SYSTEM INSTALLER Visits 0 Physical Therapy Visit Comments Patient Comments Pt is more conversant today and she asks about letting her hair dry as it is wet after bath. Therapy Pain Assessment Pain When Pain Assessed During Mobility Pain Present Pain Present Pain Reported Location left hip Intensity 2 Scale Used CarverBabs (Faces) M4 PT-IP Mobility and Gait Start: 08/14/24 08:18 Freq: NEEDED Status: Active Protocol: Document 08/15/24 11:07 MB (Rec: 08/15/24 11:51 MB [id number]) PT-Bed Mobility Assessment Supine to Sit Supine to Sit Contact Guard Assistance,Head of Bed Elevated,Bedrails Sit to Supine Sit to Supine Total Assistance,2 Person Assistance Scooting Scooting to Edge of Bed Moderate Assistance Scooting Up and Down in Bed Dependent PT-Transfer Assessment Sit to and From Stand Sit to and from Stand Maximum Assistance,1 Person Assistance,Use of Upper Extremities Equipment Transfer Assistive Device Gait Belt,Front Wheeled Walker Orthotic/Prosthetic Devices or Brace: No Comments Mobility Comments O2 sats on 1L O2 remain in the low 90s with mobility today and pt is a mouth-breather. Increased time and effort to get to EOB with HOB increased and use of rail and pt is able to do it. She does not break posterior hip precautions but neither can she verbalize understanding of them after re -ed today. PT pulls pad to get hips all the way out, mod A. STS with max A and pt holding onto gait belt and she cannot reach full standing or take a step today, returned to supine with total assist and PT keeping legs even to protect left hip. PT-Balance Assessment Sitting Balance and Reactions Static Sitting Balance Ability Fair Dynamic Sitting Balance Ability Fair Standing Balance and Reactions Static Standing Balance Ability Poor Dynamic Standing Balance Ability Poor Device Used RW M5 PT-IP Objective Assessments Start: 08/14/24 08:18 Freq: NEEDED Status: Active Protocol: Document 08/14/24 12:09 MB (Rec: 08/14/24 12:46 MB [id number]) Orientation Orientation/Cognition Level of Alertness Confusional State Orientation Name,Birthday Language Function Ability Word Finding Difficulties Safety Awareness Decreased Safety Awareness Memory Description Short Term Impaired,[facility] Impaired Gross Range of Motion Upper Extremity ROM Impairments Defer to OT next date Lower Extremity ROM Assessment Left Impaired Impairments No active movement today LLE and pt rests with right foot and toe pointed down (PFs) Strength Lower Extremity Strength Assessment Left Impaired Comments Strength Comments Pt does not participate with range or MMT today Coordination Assessment Gross Coordination Gross Coordination Impaired Sensation Assessment Comments Sensation Comments Unable to answer sensory questions M6 PT-IP Treatment Start: 08/14/24 08:18 Freq: NEEDED Status: Active Protocol: Document 08/15/24 11:07 MB (Rec: 08/15/24 11:51 MB [id number]) Physical Therapy Treatment Education Education Provided Precautions,Safety M7 PT-IP Assessment and Plan Start: 08/14/24 08:18 Freq: NEEDED Status: Active Protocol: Document 08/15/24 11:07 MB (Rec: 08/15/24 11:51 MB [id number]) PT Summary Assessment and Plan Potential Rehabilitation Potential Fair Status of Condition at Evaluation Evolving Summary Impairments Pain,ROM,Strength,Balance, Coordination,Sensation,Tone, Cognition,Bed Mobility, Transfers,Gait,Activity Tolerance Progress Towards Goals Slow Progress due to Activity Tolerance,Slow Progress - Other Assessment Summary Pt does make progress with bed mobility and scooting to EOB today and she is able to stand with a lot of assistance and RW. She cannot stand full upright and cannot take a step today. Recommend OOB with total lift and nsg assistance. Goals Bed Mobility Goal Standby Assistance Transfer Goal Contact Guard Assistance,Front Wheeled Walker Gait Goal Contact Guard Assistance,Front Wheel Walker Gait Distance 50 Days to Meet Goals 5 Frequency of Treatment Frequency Of Treatment Once a Day Treatment Plan Physical Therapy Treatment Plan Bed Mobility Training,Transfer Training,Gait Training, Therapeutic Exercise,Balance Retraining,Post Op Education, Discharge Planning,Hot or Cold Pack,Neuromuscular Re-ed, Coordination Retraining,Manual Therapy Precautions Posterior Hip Precautions No Hip Flexion > 90 degrees,No Hip Internal Rotation,No Hip Adduction Weight Bearing Status Weight Bearing Status Weight Bear as Tolerated Recommendations To Nursing Amount of Assist Needed Mechanical Lift Discharge Recommendations PT Discharge Recommendations SNF Rehab Transportation Needs at Discharge Wheelchair/Cabulance,Stretcher /Ambulance
[2024-08-15 11:55] VITALS: O2SAT 93
--- NOTE | 2024-08-15 14:26 | P.PN_ITS ---
Subjective Subjective Date Patient Seen: 08/15/24 Time Patient Seen: 13:10 Interval history: Pt sitting up in bed, somewhat confused but very pleasant and follows commands. Exam Vital Signs (past 8 hours): - 08/15/24 07:45 08/15/24 08:00 08/15/24 08:00 Pulse Rate 92 H Respiratory Rate 18 Blood Pressure 111/65 Pulse Oximetry 88 L 94 Oxygen Delivery Method Nasal Cannula Oxygen Flow Rate 0 1 Fraction of Inspired Oxygen 08/15/24 11:55 Pulse Rate Respiratory Rate Blood Pressure Pulse Oximetry 93 Oxygen Delivery Method Nasal Cannula Oxygen Flow Rate 1 Fraction of Inspired Oxygen 24 Fraction of Inspired Oxygen 24 SaO2/FiO2 Ratio 387 Oxygen Delivery Method Nasal Cannula Oxygen Flow Rate 1 Narrative Exam Narrative: 5/5 strength in hip flexors, quadriceps, hamstrings, PF, DF, EHL on left. Sensation to light touch intact throughout LLE, calf soft and compressible. Aquacel placed intraoperatively w/ minimal bloody drainage. Objective Labs 08/15/24 04:50 08/15/24 04:50 Labs: Laboratory Results - last 24 hr 08/15/24 04:50 WBC 6.0 RBC 3.16 L Hgb 9.9 L Hct 29.1 L MCV 92.1 MCH 31.2 MCHC 33.9 RDW 14.3 Plt Count 152 Neut % (Auto) 66.5 Lymph % (Auto) 23.1 L [place] % (Auto) 5.6 Eos % (Auto) 4.1 H Baso % (Auto) 0.7 Neut # (Auto) 4000 Lymph # (Auto) 1400 [place] # (Auto) 300 Eos # (Auto) 200 Baso # (Auto) 0 Sodium 132 L Potassium 3.7 Chloride 104 Carbon Dioxide 28 BUN 14 Creatinine 0.65 Estimated GFR > 60 BUN/Creatinine Ratio 21.5 Glucose 121 H Calcium 8.5 PFSH Social History marital status: household members: none housing: senior care Smoking Status: Never smoker Assessment & Plan Post-op Assessment and plan (1) Status post hip hemiarthroplasty: Assessment and Plan narrative: WBAT to LLE, posterior hip precautions x 6 weeks. Recommend hip abduction pillow while sleeping d/t h/o dementia. Enoxaparin 40mg SQ daily x 4 weeks for VTE prophylaxis. Disposition, pain control per hospitalist service. Postoperative Procedures: Procedures Operation Date: 08/13/24 11:15 Actual Procedure Side Surgeon p Hip Hemiarthroplasty Left Phuong Lundberg MD Postoperative day: 2 Quality VTE Deep Vein Thrombosis/Pulmonary Embolism Present on Admission: No
[2024-08-15 16:09] VITALS: BP 117/48; PULSE 96; RESP 17; O2SAT 94
--- NOTE | 2024-08-15 17:32 | PC.NURSE ---
Day shift: Pt much more awake and alert today, compared to yesterday. OOB to BSC and to chair with 2P max assist. Needed lots of cueing, but she stated strong motivation. IV fluids left in place as pt still not having large oral fluid intake and Boogie output continues to be low. Pain well controlled with PO medication. Passing gas and attempted to have BM in BSC this evening, no success. Will continue to monitor.
[2024-08-15 20:00] VITALS: BP 107/70; PULSE 98; RESP 24; TEMP 36.6; O2SAT 98
[2024-08-15] MEDS: CARBIDOPA-LEVODOPA ER 50/200 TABLET 1 EACH PO (20:46)
[2024-08-15] MEDS: SENNOSIDES 8.6 MG TABLET 17.2 MG PO (20:46)
[2024-08-15 21:15] VITALS: O2SAT 98
[2024-08-16] MEDS: LEVOTHYROXINE 125 MCG TABLET PO (05:36)
[2024-08-16] MEDS: PANTOPRAZOLE DR 40 MG TABLET PO (06:39)
[2024-08-16] MEDS: OXYCODONE IR 5 MG TABLET PO (06:39)
--- NOTE | 2024-08-16 07:30 | P.PN_ITS ---
Subjective Subjective Date Patient Seen: 08/16/24 Time Patient Seen: 07:30 Interval history: pain is [id number]. Denies fever or chills. No nausea or vomiting. Exam Vital Signs (past 8 hours): Fraction of Inspired Oxygen 26 SaO2/FiO2 Ratio 376 Oxygen Delivery Method Nasal Cannula Oxygen Flow Rate 1.5 Narrative Exam Narrative: 74-year-old female resting comfortably in bed in no apparent distress. Left hip dressing shows scant drainage otherwise intact. Neurovascular status is intact bilateral lower extremities. Const General: cooperative and comfortable Nutritional Appearance: average body habitus Orientation: alert Objective Labs 08/15/24 04:50 08/15/24 04:50 PFSH Social History marital status: household members: none housing: correction Smoking Status: Never smoker Assessment & Plan Post-op Postoperative Procedures: Procedures Operation Date: 08/13/24 11:15 Actual Procedure Side Surgeon p Hip Hemiarthroplasty Left Phuong Lundberg MD Postoperative day: 3 Postoperative status narrative: Stable status post hemiarthroplasty left hip Postoperative plan narrative: weightbearing as tolerated, posterior hip precautions x6 weeks Lovenox 40 mg subQ daily x4 weeks for DVT prophylaxis follow up outpatient orthopedic clinic in 2-3 weeks for x-rays disposition per Internal Medicine. Quality VTE Deep Vein Thrombosis/Pulmonary Embolism Present on Admission: No
[2024-08-16 08:00] VITALS: BP 148/91; PULSE 104; RESP 19; TEMP 37.2; O2SAT 92
[2024-08-16] MEDS: ATORVASTATIN 20 MG TABLET 40 MG PO (08:22)
[2024-08-16] MEDS: CARBIDOPA-LEVODOPA 25/100 TABLET 2.5 EACH PO (08:22)
[2024-08-16] MEDS: FENOFIBRATE, MICRONIZED 67 MG CAPSULE PO (08:23)
[2024-08-16] MEDS: ENOXAPARIN 40 MG/0.4 ML SYRINGE SUBCUT (08:23)
[2024-08-16] MEDS: polyethylene glycoL 3350 17 GM POWD.PACK PO (08:23)
[2024-08-16] MEDS: DULOXETINE 30 MG CAPSULE 60 MG PO (08:23)
[2024-08-16] MEDS: DOCUSATE 100 MG CAPSULE PO (08:23)
[2024-08-16] MEDS: ACETAMINOPHEN 325 MG TABLET 650 MG PO (08:24)
[2024-08-16 09:11] VITALS: O2SAT 92
--- NOTE | 2024-08-16 10:47 | CM.DPC ---
DCP Cont. Reviewed EMR and team rounds for status updates. Pt has been medically cleared for d/c. Doron Gaitan will be coming to transport her at 11:45am. Notified MD and RN. D/c clinicals faxed. No further needs identified for CM assistance at this time.
--- NOTE | 2024-08-16 10:59 | PT-IP ANOTE ---
RN reports pt is not appropriate for PT at this time. Pt just fell asleep and would like to rest.
--- NOTE | 2024-08-16 11:00 | P.DS_ITS ---
History of Present Illness History of Present Illness Chief complaint: GLF Narrative: From H&P: 74 y/o with PMH of Parkinson's disease, recurrent falls, OP, cognitive deficits, hypothyroidism, mixed HLD, GERD, who presented with left hip fracture after she sustained GLF. Unable to provide history or talk at the time of admission. Orthopedic surgery will see in AM for ORIF for Lt femoral neck fracture. Discharge Providers Provider Date of admission: 08/12/24 21:35 Discharge Date: 08/16/24 Consults: 08/12/24 21:35 Consult to Orthopedic Surgery Stat Comment: Consulting Provider: Phuong Lundberg Reason for consultation: LEFT FEMORAL NECK FX Has provider been notified: Yes 08/13/24 00:03 Consult to Occupational Therapy Evaluate & Treat Comment: Physician Instructions: Evaluate and treat Consult to Physical Therapy Evaluate & Treat Comment: Physician Instructions: Evaluate and Treat 08/13/24 14:28 Consult to Discharge Planning Routine Comment: Consult to Occupational Therapy Evaluate & Treat Comment: Physician Instructions: Evaluate and treat Consult to Physical Therapy Evaluate & Treat Comment: php 6wks, abd pillow when in bed Physician Instructions: Evaluate and Treat Discharge provider: Jose Lentz MD Summary Hospital Course Discharge Diagnosis: 1. Left femoral neck fracture secondary to ground level fall, present on admission and active. Patient was admitted with an acute left femoral neck fracture. She is now postoperative day 1 from hemiarthroplasty. Ongoing management per Orthopedic surgery. 2. Parkinson's disease, present on admission and active. Continue her usual dose of Sinemet. 3. Acute blood loss anemia, present on admission and active. Hemoglobin is mildly decreased from 12.2-11.2, likely secondary to hip fracture and expected blood loss from surgery. We will continue to monitor. 4. Hyponatremia , present on admission and active. -did drop and will need to be monitored. 5. Advanced dementia, present on admission and active. On rivastigmine. This will be continued. She is much more verbal today compared with yesterday. 6. Hypothyroidism, present on admission and active. Continue levothyroxine. 7. GERD, present on admission and active. Continue PPI. Hospital Course: She was admitted with a hip fracture and underwent an hemiarthroplasty. She did well in the postoperative period. She did have a minor blood loss anemia. She was DNR and DNI. She did drop her sodium over the last 2 days and was given saline on the day of discharge. She will be placed on salt pills for the next several days with a repeat BMP in 2-3 days to reassess her probable hyponatremia with solute deficiency. She did have improving pain and was able to stand up with therapies prior to discharge. She was mildly hypertensive and her blood pressure medications were continued. Status at Discharge Cognitive/behavioral status at discharge: at baseline, confused Functional status at discharge: uses cane/walker Overall status at discharge: patient is not back to baseline Time Spent with Patient Time spent: Greater than 30 minutes Exam Vital Signs (past 8 hours): - 08/16/24 08:00 08/16/24 09:11 Temperature 99 F Pulse Rate 104 H Respiratory Rate 19 Blood Pressure 148/91 H Pulse Oximetry 92 92 Oxygen Delivery Method Nasal Cannula Oxygen Flow Rate 1.5 2 Fraction of Inspired Oxygen 28 Fraction of Inspired Oxygen 28 SaO2/FiO2 Ratio 328 Oxygen Delivery Method Nasal Cannula Oxygen Flow Rate 2 Narrative Exam Narrative: NAD, alert and oriented. Fluent speech. Lungs are clear, normal rate and effort. Heart is regular, no murmur gallop or rub. Abdomen is soft, non distended. Extremities are free of edema. Objective Labs 08/15/24 04:50 08/15/24 04:50 [facility] Social History marital status: household members: none housing: residential Smoking Status: Never smoker Discharge Assessment & Plan Assessment and Plan Assessment: 1. Left femoral neck fracture secondary to ground level fall, present on admission and active. Patient was admitted with an acute left femoral neck fracture. She is now postoperative day 1 from hemiarthroplasty. Ongoing management per Orthopedic surgery. 2. Parkinson's disease, present on admission and active. Continue her usual dose of Sinemet. 3. Acute blood loss anemia, present on admission and active. Hemoglobin is mildly decreased from 12.2-11.2, likely secondary to hip fracture and expected blood loss from surgery. We will continue to monitor. 4. Hyponatremia , present on admission and active. -did drop and will need to be monitored. 5. Advanced dementia, present on admission and active. On rivastigmine. This will be continued. She is much more verbal today compared with yesterday. 6. Hypothyroidism, present on admission and active. Continue levothyroxine. 7. GERD, present on admission and active. Continue PPI. Plan of Treatment: Discharge to [facility], salt pills for 14 days, recheck sodium in 2-3 days. Oxycodone for pain. Monitor blood pressures, these may need to be adjusted upwards. Discharge Plan Discharge Plan Patient Disposition: SNF Transfer to: [facility] Under care of provider: SNF provider. Provider Discharge Comment: Stable for discharge to halfway [facility] for ongoing rehab following her hip arthroplasty. BMP in 2-3 days to recheck Na. Discharge orders & Medications Prescriptions: New sodium chloride 1,000 mg tablet,soluble 1,000 mg PO DAILY Qty: 14 0RF Continued sennosides [senna] 8.6 mg Tablet 17.2 mg PO BEDTIME PRN (Reason: Constipation) Rx Instructions: for day 4 without a bowel movement acetaminophen 325 mg Tablet 650 mg PO Q4H MDD 3000 mg PRN (Reason: Pain, Mild) naloxone 0.4 mg/mL Solution 0.4 mg SUBCUT Q2M PRN (Reason: Suspected Opioid overdose) Rx Instructions: NTExceed 10 mg total dose/episode carbidopa-levodopa 50-200 mg tablet extended release 1 tab PO ONCE PM triamcinolone acetonide 0.1 % Cream 1 applic TOPICAL BID PRN (Reason: Rash) Rx Instructions: Apply to BUE topically as needed for rash/itching. Avoid use on armpits, face, and groin. simvastatin 40 mg tablet 40 mg PO DAILY mineral oil Enema 118 ml [place] DAILY PRN (Reason: Constipation) Rx Instructions: discard any unused portion. For day 6 without a bowel movement trazodone 100 mg tablet 100 mg PO ONCE PM PRN (Reason: Insomnia) bisacodyl [Dulcolax (bisacodyl)] 10 mg Suppository 10 mg [place] DAILY PRN (Reason: Constipation) Rx Instructions: for day 5 without bowel movement esomeprazole magnesium 40 mg capsule,delayed release(DR/EC) 40 mg PO DAILY levothyroxine 125 mcg tablet 125 mcg PO DAILY polyethylene glycol 3350 [Miralax] 17 gram/dose Powder 17 g PO DAILY PRN (Reason: Constipation) Rx Instructions: on day 3 without a bowel movement carbidopa-levodopa 25-100 mg tablet 2.5 tab PO 3XD duloxetine 60 mg capsule,delayed release(DR/EC) 60 mg PO BID fenofibrate 54 mg tablet 54 mg PO DAILY mirabegron [Myrbetriq] 50 mg tablet extended release 24 hr 50 mg PO DAILY rivastigmine 13.3 mg/24 hour patch 24 hour 1 patch topical DAILY oxycodone 5 mg Tablet 5 mg PO BID PRN (Reason: chronic pain) Qty: 15 0RF Follow up/Referrals: Phuong Lundberg MD [Physician] - 2 Weeks (Follow up w/ PA or Dr Lundberg in ortho clinic in 2-3 weeks for wound check/staple removal.) Discharge Health Status Multidrug resistant organism: No MDRO Diet/Activity/Treatments Diet: Regular Liquid consistency: Normal/Thin Activity: WBAT to LLE. Posterior hip precautions x 6 weeks. Hip abduction pillow while sleeping d/t h/o dementia. Skin/Wound/Dressing Care Dressing: Remove Aquacel dressing if it becomes saturated inside and replace with clean, dry gauze. May get incision wet; pat dry immediately afterwards. No soaking incision. Do not apply any creams, lotions, or ointments to incision. Special Rehabilitation Services Reason for rehabilitation: Post-operative therapy Rehab type: Physical therapy and Occupational therapy Visit Report/Discharge Packet Instructions: DI for Hip Replacement Stand Alone Forms: Patient Portal/API Quality VTE Deep Vein Thrombosis/Pulmonary Embolism Present on Admission: No
--- NOTE | 2024-08-16 11:04 | OT.IPNOTE ---
RN reports pt is not appropriate for therapy at this time. Pt has been restless and has just fallen asleep. OT will re-evaluate the situation when able.
--- NOTE | 2024-08-16 12:14 | PC.NURSE ---
Discharge Note Patient A&O, VSS, RA, no complaints of pain/discomfort. Patient oriented to baseline, looking forward to seeing at facility. PIV discontinued. Patient transported to wheelchair with janice. Patient taken down via wheelchair to cabulance by oil transport driver.
--- NOTE | 2024-08-16 14:14 | PC.NURSE ---
MANAGER RN CASE note: After pt discharged, housekeeping found one patient belonging bag and a small patient labeled specimen cup with a watch and two rings. Called Doron Gaitan and left vm regarding left patient belongings. Also called and left vm. Placed a face sheet on bag and left bag in coordinators office. Jewelry was left locked in the safe with pt sticker. Notified rn charge and nurse.
--- NOTE | 2024-08-16 14:33 | PC.NURSE ---
Pt Jewelry and clothing found in room after pt taken via cabulance. Doron notified, pt jewelry in safe in coordinators office.
== END 2024-08-16 12:00 | DRG 522 ==
LOC: ED 21:22 → AC 21:36
PROVIDERS: Family Medicine; Orthopaedic Surgery Foot and Ankle Surgery; Admitting Provider Internal Medicine; Emergency Provider Emergency Medicine; Referring Provider Emergency Medicine; Visit Provider Internal Medicine
PROC: 0SRS0JZ Replacement of Left Hip Joint, Femoral Surface with Synthetic Substitute, Open Approach (ICD-10-PCS; CPT 27125; principal; 2024-08-13 11:15)
DX: M80.052A Age-related osteoporosis with current pathological fracture, left femur, initial encounter for fracture (principal); E87.1 Hypo-osmolality and hyponatremia; D62 Acute posthemorrhagic anemia; F02.83 Dementia in other diseases classified elsewhere, unspecified severity, with mood disturbance; G20.A1 Parkinson's disease without dyskinesia, without mention of fluctuations; E03.9 Hypothyroidism, unspecified; K21.9 Gastro-esophageal reflux disease without esophagitis; E78.2 Mixed hyperlipidemia; K59.00 Constipation, unspecified; Z66 Do not resuscitate; Z91.81 History of falling; Z51.5 Encounter for palliative care
CPT/HCPCS: 36415; 64450; 70450; 71045; 72125; 72170; 73501; 73502; 73552; 80048; 80053; 85025; 85610; 86850; 86900; 86901; 94762; 96374; 96375; 97162; 97166; 97530; 97535; 99285; C1776; C9290; J0134; J0171; J0330; J0690; J1171; J1650; J1885; J2270; J2405; J2470; J2704; J3010

== ENCOUNTER 2024-09-28 15:47 | Emergency (ER) | payer MEDICARE, SELFPAY ==
[2024-08-12 21:50] VITALS: BMI 27.4
[2024-09-28] VITALS (21 sets, daily range): BP systolic 91–135; BP diastolic 50–68; PULSE 68–89; RESP 16–18; TEMP 36.6; O2SAT 62–100
--- NOTE | 2024-09-28 15:57 | DI.RAD.S_ITS ---
PROCEDURE: XR HIP W PEL IF DONE LT 2V INDICATIONS: GLF R hip pain TECHNIQUE: AP pelvis and lateral view of the hip acquired. COMPARISON: [facility], [place], XR HIP W PEL IF DONE LT 2V, 08/12/2024, 20:18. FINDINGS: Bones: Patient is status post left hip arthroplasty, with hardware components in expected positions. The hip joint appears congruent. The visualized bony structures appear intact. Soft tissues: Overlying postoperative changes are noted. No suspicious soft tissue densities. IMPRESSION: Expected post-operative appearance of a hip arthroplasty. Dictated by: Cynthia Oliveros M.D. on 09/28/2024 at 16:57 Approved by: Cynthia Oliveros M.D. on 09/28/2024 at 16:58
[2024-09-28] MEDS: HYDROMORPHONE 1 MG INJ IV (17:14)
--- NOTE | 2024-09-28 17:29 | PC.NURSE ---
Dtr in law, Tova called to check on patient, she stated that patient has Lupus and Parkinson's along with memory issues. Pt has partial hip replacement about 3 months ago and is not to get out of bed without assistance but will try anyway. The NURSING HOME/SNF reported to her that the patient was found on the floor next to her bed with her blanket wrapped around her. Dtr in law asked for update when we have more information.
--- NOTE | 2024-09-28 17:33 | PC.NURSE ---
Pt removed VS equipment. Is refusing at this time, pt is tearful at times.
--- NOTE | 2024-09-28 19:29 | ED.FALL ---
HPI - Fall General Chief Complaint: Fall Stated Complaint: GLF, R Hip Pain Time Seen by Provider: 09/28/24 17:05 History of Present Illness HPI Narrative: 74-year-old female with history of Parkinson's disease, dementia, DNR/comfort care status presents from [facility] for right hip pain. Patient was found at the side of her bed by staff and she was sent in for evaluation. On my evaluation patient initially found to be sleeping comfortably. On awakening she is pleasantly confused and uncertain of why she is in the ER. Denying pain currently. Related Data Home Medications Medication Instructions Recorded Confirmed acetaminophen 325 mg tablet 650 mg PO Q4H PRN Pain, Mild 08/12/24 08/12/24 bisacodyl 10 mg rectal suppository 10 mg [place] DAILY PRN Constipation 08/12/24 08/12/24 (Dulcolax (bisacodyl)) carbidopa 25 mg-levodopa 100 mg 2.5 tab PO 3XD 08/12/24 08/12/24 tablet carbidopa ER 50 mg-levodopa 200 mg 1 tab PO ONCE PM 08/12/24 08/12/24 tablet,extended release duloxetine 60 mg capsule,delayed 60 mg PO BID 08/12/24 08/12/24 release esomeprazole magnesium 40 mg 40 mg PO DAILY 08/12/24 08/12/24 capsule,delayed release fenofibrate 54 mg tablet 54 mg PO DAILY 08/12/24 08/12/24 levothyroxine 125 mcg tablet 125 mcg PO DAILY 08/12/24 08/12/24 mineral oil 118 ml [place] DAILY PRN Constipation 08/12/24 08/12/24 mirabegron 50 mg tablet,extended 50 mg PO DAILY 08/12/24 08/12/24 release 24 hr (Myrbetriq) naloxone 0.4 mg/mL injection 0.4 mg SUBCUT Q2M PRN Suspected 08/12/24 08/12/24 solution Opioid overdose polyethylene glycol 3350 17 17 g PO DAILY PRN Constipation 08/12/24 08/12/24 gram/dose oral powder (Miralax) rivastigmine 13.3 mg/24 hour 1 patch topical DAILY 08/12/24 08/12/24 transdermal patch sennosides 8.6 mg tablet (senna) 17.2 mg PO BEDTIME PRN Constipation 08/12/24 08/12/24 simvastatin 40 mg tablet 40 mg PO DAILY 08/12/24 08/12/24 trazodone 100 mg tablet 100 mg PO ONCE PM PRN Insomnia 08/12/24 08/12/24 triamcinolone acetonide 0.1 % 1 applic topical BID PRN Rash 08/12/24 08/12/24 topical cream Previous Rx's Medication Instructions Recorded oxycodone 5 mg tablet 5 mg PO BID PRN chronic pain #15 08/16/24 tabs sodium chloride 1,000 mg soluble 1,000 mg PO DAILY #14 tabs 08/16/24 tablet Allergies Allergy/AdvReac Type Severity Reaction Status Date / Time amoxicillin [From Augmentin] Allergy Unknown Verified 08/12/24 21:49 clavulanic acid Allergy Unknown Verified 08/12/24 21:49 [From Augmentin] Patient History Social History marital status: household members: none housing: long-term Smoking Status: Never smoker Smoking Status: Never smoker Exam Initial Vital Signs Initial Vital Signs: Vital Signs Temperature 97.9 F 09/28/24 15:52 Pulse Rate 75 09/28/24 15:52 Respiratory Rate 16 09/28/24 15:52 Blood Pressure 116/68 09/28/24 15:52 Pulse Oximetry 99 09/28/24 15:52 Oxygen Delivery Method Room Air 09/28/24 15:52 Const: Sleeping, easily arouses to voice, debilitated, frail Cardiac: regular rate, regular rhythm RESP: unlabored, clear bilaterally, no wheezing MSK: No deformity, neurovascularly intact, able to move lower extremities without pain Skin: Warm, Dry, intact, no rashes Neuro: AO x1, CN II-XII grossly intact, moves all extremities Course Orders Ordered: Discontinued Medications Hydromorphone HCl (Hydromorphone 1 Mg Inj) 1 mg IV NOW ONE Stop: 09/28/24 17:06 Last Admin: 09/28/24 17:14 Dose: 1 mg Documented By: KEVON Ondansetron HCl (Ondansetron 4 Mg/2 Ml Inj) 4 mg IV NOW ONE Stop: 09/28/24 17:06 Last Admin: 09/28/24 20:05 Dose: Not Given Documented By: KEVON Vital Signs Vital signs: Vital Signs - 8 hr 09/28/24 15:52 Temperature 97.9 F Pulse Rate 75 Respiratory Rate 16 Blood Pressure 116/68 Pulse Oximetry 99 Oxygen Delivery Method Room Air MDM - Fall Imaging Data Extremity x-ray #1: Radiologist's Impression: PROCEDURE: XR HIP W PEL IF DONE LT 2V INDICATIONS: GLF R hip pain TECHNIQUE: AP pelvis and lateral view of the hip acquired. COMPARISON: [facility], , XR HIP W PEL IF DONE LT 2V, 08/12/2024, 20:18. FINDINGS: Bones: Patient is status post left hip arthroplasty, with hardware components in expected positions. The hip joint appears congruent. The visualized bony structures appear intact. Soft tissues: Overlying postoperative changes are noted. No suspicious soft tissue densities. IMPRESSION: Expected post-operative appearance of a hip arthroplasty. Dictated by: Cynthia Oliveros M.D. on 09/28/2024 at 16:57 Approved by: Cynthia Oliveros M.D. on 09/28/2024 at 16:58 [facility] Narrative Medical decision making narrative: Patient sent in for reports of right hip pain after a fall. On exam patient has no pain. She was pleasantly demented, does not remember falling or injuring herself. Patient's advanced directive is focused towards comfort care. X-ray imaging shows stable hip arthroplasty. Patient discharged back to her living facility in stable condition. Discharge Plan Departure Patient Disposition: Home Clinical Impression: Hip joint pain Instructions: DI for Hip Pain Activity Restrictions/Additional Instructions: X-rays of the hip showed that hardware is in correct place. Tylenol can be given as needed for pain or discomfort Prescriptions: No Action sennosides [senna] 8.6 mg Tablet 17.2 mg PO BEDTIME PRN (Reason: Constipation) Rx Instructions: for day 4 without a bowel movement acetaminophen 325 mg Tablet 650 mg PO Q4H MDD 3000 mg PRN (Reason: Pain, Mild) naloxone 0.4 mg/mL Solution 0.4 mg SUBCUT Q2M PRN (Reason: Suspected Opioid overdose) Rx Instructions: NTExceed 10 mg total dose/episode carbidopa-levodopa 50-200 mg tablet extended release 1 tab PO ONCE PM triamcinolone acetonide 0.1 % Cream 1 applic TOPICAL BID PRN (Reason: Rash) Rx Instructions: Apply to BUE topically as needed for rash/itching. Avoid use on armpits, face, and groin. simvastatin 40 mg tablet 40 mg PO DAILY mineral oil Enema 118 ml [place] DAILY PRN (Reason: Constipation) Rx Instructions: discard any unused portion. For day 6 without a bowel movement trazodone 100 mg tablet 100 mg PO ONCE PM PRN (Reason: Insomnia) bisacodyl [Dulcolax (bisacodyl)] 10 mg Suppository 10 mg [place] DAILY PRN (Reason: Constipation) Rx Instructions: for day 5 without bowel movement esomeprazole magnesium 40 mg capsule,delayed release(DR/EC) 40 mg PO DAILY levothyroxine 125 mcg tablet 125 mcg PO DAILY polyethylene glycol 3350 [Miralax] 17 gram/dose Powder 17 g PO DAILY PRN (Reason: Constipation) Rx Instructions: on day 3 without a bowel movement carbidopa-levodopa 25-100 mg tablet 2.5 tab PO 3XD duloxetine 60 mg capsule,delayed release(DR/EC) 60 mg PO BID fenofibrate 54 mg tablet 54 mg PO DAILY mirabegron [Myrbetriq] 50 mg tablet extended release 24 hr 50 mg PO DAILY rivastigmine 13.3 mg/24 hour patch 24 hour 1 patch topical DAILY oxycodone 5 mg Tablet 5 mg PO BID PRN (Reason: chronic pain) Qty: 15 0RF sodium chloride 1,000 mg tablet,soluble 1,000 mg PO DAILY Qty: 14 0RF Stand Alone Forms: Patient Portal/API/Survey
--- NOTE | 2024-09-28 20:27 | PC.NURSE ---
Called SNF to arrange transport home, was told they nurse would call back, attempted to contact then again after 20wait. Nobody answered the phone.
--- NOTE | 2024-09-28 20:38 | PC.NURSE ---
Evelyn for SNF phoned for update, they are not able top transport at this time, BLS transport being set up
--- NOTE | 2024-09-28 20:40 | PC.NURSE ---
Phoned Evelyn and informed her of transport
--- NOTE | 2024-09-28 20:43 | PC.NURSE ---
Spoke with dtr in law, updated about discharge and transport.
== END 2024-09-28 22:43 | disposition home or self-care (01) ==
PROVIDERS: Emergency Provider Emergency Medicine
DX: M25.552 Pain in left hip (principal)
CPT/HCPCS: 73502; 96374; 99283; J1171